=== PATIENT | male | born 1985 | race African-American/Black ===

== ENCOUNTER → 2016-12-11 | Outpatient (CLI) | payer SELFPAY ==
[~2016-12-11] MED LIST: /ALLEGDTA OR; ADVIL PO; ARTISOL10 OS; BACT800T OR; KEFL250C OR; PERC5TAB8 OR; ROCE1INJ IV; VIGAMOX OS
== END ==
LOC: M OUTALCOH 13:35
PROVIDERS: ATTEND Psychiatry & Neurology Psychiatry
DX: Z13.9 Encounter for screening, unspecified (principal); Z03.89 Encounter for observation for other suspected diseases and conditions ruled out

== ENCOUNTER → 2016-12-21 | Outpatient (CLI) | payer OTHER ==
--- NOTE | 2016-12-21 10:59 | REP ---
Chest x-ray: Three views. History: Positive PPD. . Comparison study: No comparison chest x-ray . Findings: The lungs are well inflated and free of infiltrate. The pleural angles are sharp. The heart size is normal. Pulmonary vasculature is not increased. No significant bony abnormality is seen. Impression: Negative chest x-ray. Signed by Jas Sanders MD 12/21/2016 10:50 A
== END ==
LOC: M WUC 10:36
PROVIDERS: ATTEND Surgery
DX: Z11.1 Encounter for screening for respiratory tuberculosis (principal)

== ENCOUNTER → 2017-03-29 | Outpatient (CLI) | payer OTHER ==
--- NOTE | 2017-03-29 10:21 | REP ---
RIGHT KNEE, FIVE VIEWS: HISTORY: Pain. There is no acute fracture or dislocation. The joint spaces are normal in appearance. A bone island is present in the proximal tibia. IMPRESSION: There is no acute fracture or dislocation. Signed by Dago Jon MD 03/29/2017 10:28 A
== END ==
LOC: M WUC 09:32
PROVIDERS: ATTEND Surgery
DX: M25.561 Pain in right knee (principal)

== ENCOUNTER 2019-11-15 07:52 | Outpatient (RCR) | payer MEDICAID | END 2019-11-17 | LOC: M OUTALCOH 07:52 | PROVIDERS: ATTEND Psychiatry & Neurology Addiction Medicine | DX: Z03.89 Encounter for observation for other suspected diseases and conditions ruled out (principal) ==

== ENCOUNTER 2019-11-23 11:17 | Outpatient (RCR) | payer MEDICAID | END 2019-12-16 | LOC: M OUTALCOH 11:17 | PROVIDERS: ATTEND Psychiatry & Neurology Addiction Medicine | DX: Z03.89 Encounter for observation for other suspected diseases and conditions ruled out (principal) ==

== ENCOUNTER → 2020-03-20 | Outpatient (CLI) | payer OTHER ==
--- NOTE | 2020-03-20 15:05 | REP ---
REASON FOR EXAM: Right upper quadrant pain. PRIORS: None. Ultrasonographic evaluation of the liver shows no abnormalities. There is no intrahepatic or extrahepatic ductal dilatation. The common bile duct measures 3 mm in its greatest transverse dimension. The gallbladder, pancreas, and right kidney are normal. IMPRESSION: Normal exam.
== END ==
LOC: M PLAIMG 09:14
PROVIDERS: ATTEND Physician Assistant
DX: R10.11 Right upper quadrant pain (principal)

== ENCOUNTER → 2020-04-05 | Outpatient (CLI) | payer OTHER ==
[~2020-04-05] MED LIST changes: +ANEC4CRE3 TOP; +IBUP200C25 PO; +NAPR-837 PO; +PROAAER10 INH; +ROBA750T4 PO; +TESS100C PO
--- NOTE | 2020-04-06 10:20 | REP ---
MAXILLOFACIAL CT STUDY WITHOUT CONTRAST: HISTORY: Chronic pansinusitis. Comparison CT study, October 23, 2011. CT FINDINGS: There is moderate mucosal thickening circumferentially in the maxillary sinuses bilaterally. This it is similar to the prior study. Moderate mucosal changes are seen in the ethmoid air cells bilaterally. There are mild mucosal changes in the sphenoid and frontal sinuses. Mastoid aeration is normal and symmetric. Bony nasal septum is essentially in the midline. Nasal turbinate soft tissues are unremarkable. No nasal polyp is appreciated. The ostiomeatal complexes are obscured by mucosal thickening bilaterally. No bony erosive changes seen. IMPRESSION: Polysinusitis changes, similar to the prior study. Electronically Signed by Jas Sanders MD 04/06/2020 10:36 A
== END ==
LOC: M RAD 12:39
PROVIDERS: ATTEND Specialist
DX: J32.4 Chronic pansinusitis (principal); J01.01 Acute recurrent maxillary sinusitis

== ENCOUNTER → 2020-05-20 | Outpatient (CLI) | payer OTHER ==
[~2020-05-20] MED LIST changes: -ANEC4CRE3 TOP; -NAPR-837 PO; -PROAAER10 INH; -ROBA750T4 PO; -TESS100C PO
--- NOTE | 2020-07-08 10:31 | REP ---
HEPATOCELLULAR NUCLEAR SCINTIGRAPHY WITH GALLBLADDER EJECTION FRACTION: HISTORY: Gastroesophageal reflux disease, right upper quadrant pain, esophagitis. TECHNIQUE: 6.6 mCi of Technetium-99m MDP is injected and standard sequential right upper quadrant imaging is acquired. At the 60 minute shikha, 8 ounces of Ensure was ingested orally and continued sequential imaging was acquired for another 60 minutes. Regions of interest are plotted around the gallbladder. SCINTOGRAPHIC FINDINGS: The initial hepatocellular parenchymal uptake phase is normal and homogeneous. The gallbladder is first labeled at 10 minutes along with intrahepatic bile ducts. The extrahepatic bile ducts are labeled at 15 minutes and the duodenum and jejunum are labeled at 30 and 35 minutes respectively. The ejection fraction is 72%. Values greater than 35% are normal. IMPRESSION: Normal hepatobiliary scan and gallbladder ejection fraction. MTDD
== END ==
LOC: M RAD 09:00
PROVIDERS: ATTEND Physician Assistant
DX: R10.11 Right upper quadrant pain (principal); K21.0 Gastro-esophageal reflux disease with esophagitis

== ENCOUNTER 2020-06-05 11:00 | Emergency (ER) | payer OTHER ==
[~2020-06-05] VITALS: Ht 182.9 cm; Wt 112.9 kg
[~2020-06-05 11:00] MED LIST changes: -IBUP200C25 PO
[2020-06-05 11:04] VITALS: BP 134/90
[2020-06-05] MEDS ORDERED: IBUP200C25 PO (11:10)
--- NOTE | 2020-06-27 11:05 | ECGEPIP ---
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
== END 2020-06-05 11:51 | disposition left against medical advice (07) ==
LOC: M ED 11:00
DX: M79.605 Pain in left leg (principal); R00.1 Bradycardia, unspecified; R19.7 Diarrhea, unspecified; J45.909 Unspecified asthma, uncomplicated; F17.210 Nicotine dependence, cigarettes, uncomplicated; Z53.9 Procedure and treatment not carried out, unspecified reason

== ENCOUNTER 2020-09-11 07:26 | Emergency (ER) | payer OTHER ==
[~2020-09-11] VITALS: Ht 182.9 cm; Wt 108.0 kg
[~2020-09-11 07:26] MED LIST changes: +IBUP200C25 PO
[2020-09-11] MEDS ORDERED: ACETAMINOPHEN 500 MG TAB PO ONE (08:00)
[2020-09-11 08:45] VITALS: O2SAT 100
[2020-09-11 09:02] LABS: BASO % 0.3 % (0.0-1.0); EOS # 0.3 10^3/uL (0.0-0.5); EOS % 3.9 % (0.0-3.0); HEMATOCRIT 43.5 % (42.0-52.0); HEMOGLOBIN 14.2 g/dl (13.5-17.5); LYMPH # 1.4 10^3/uL (1.5-5.0); LYMPH % 21.1 % (24.0-44.0); MEAN CORPUSCULAR HEMOGLOBIN 29.3 pg (27.0-33.0); MEAN CORPUSCULAR HGB CONC 32.6 g/dl (32.0-36.5); MEAN CORPUSCULAR VOLUME 89.7 fl (80.0-96.0); MONO # 1.2 10^3/uL (0.0-0.8); MONO % 17.3 % (0.0-5.0); NEUTROPHILS # 3.8 10^3/uL (1.5-8.5); NEUTROPHILS % 57.1 % (36.0-66.0); PLATELET COUNT, AUTOMATED 198 10^3/uL (150-450); RED BLOOD COUNT 4.85 10^6/uL (4.30-6.10); WHITE BLOOD COUNT 6.7 10^3/uL (4.0-10.0)
--- NOTE | 2020-09-11 09:11 | REP ---
INDICATION: chest tightness COMPARISON: 12/21/2016 TECHNIQUE: Portable AP view of the chest FINDINGS: The mediastinum and cardiac silhouette are stable and within normal limits for portable technique. The lung quijano are clear without acute consolidation, effusion, or pneumothorax. Skeletal structures are intact. IMPRESSION: No acute cardiopulmonary process appreciated. <Electronically signed by Bert Rushing > 09/11/20 [id number]
[2020-09-11 09:27] LABS: INFLUENZA A AMPLIFICATION NEGATIVE (NEGATIVE); INFLUENZA B AMPLIFICATION NEGATIVE (NEGATIVE)
[2020-09-11 09:31] LABS: ALBUMIN 3.3 GM/DL (3.2-5.2); ALT/SGPT 24 U/L (12-78); BILIRUBIN,DIRECT < 0.1 MG/DL (0.0-0.2); BILIRUBIN,TOTAL 0.3 MG/DL (0.2-1.0); BLOOD UREA NITROGEN 11 MG/DL (7-18); CALCIUM LEVEL 8.9 MG/DL (8.5-10.1); CARBON DIOXIDE LEVEL 25 MEQ/L (21-32); CHLORIDE LEVEL 109 MEQ/L (98-107); CK-MB VALUE MASS < 1.0 NG/ML (<3.6); CPK CREATINE PHOSPHOKINASE 192 U/L (39-308); CREATININE FOR GFR 0.95 MG/DL (0.70-1.30); GLOMERULAR FILTRATION RATE > 60.0 (>60); GLUCOSE, FASTING 79 MG/DL (70-100); LIPASE 73 U/L (73-393); MB/CK RELATIVE INDEX 0.52 (< OR =4); POTASSIUM SERUM 3.9 MEQ/L (3.5-5.1); SODIUM LEVEL 142 MEQ/L (136-145); TOTAL PROTEIN 7.5 GM/DL (6.4-8.2); TROPONIN I < 0.02 NG/ML (< 0.10)
[2020-09-11] MEDS ORDERED: diphenhydrAMINE 50MG/ML VIAL (J1200) IV ONE (09:45)
[2020-09-11] MEDS ORDERED: METOCLOPRAMIDE INJ 10MG/2ML VIAL (J2765 PER 1) IV ONE (09:45)
[2020-09-11] MEDS ORDERED: KETOROLAC 30 MG/ML 1ML VIAL IM ONE (09:45)
[2020-09-11] MEDS ORDERED: NS 500 ML IV ONE (09:45)
[2020-09-11] MEDS ORDERED: KETOROLAC 30 MG/ML 1ML VIAL IV ONE (10:15)
[2020-09-11] MEDS ORDERED: PROAAER10 INH (11:15)
[2020-09-11 11:58] VITALS: BP 146/83
[2020-09-11] MEDS ORDERED: TESS100C PO (11:59)
--- NOTE | 2020-09-12 07:24 | ECGEPIP ---
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
== END 2020-09-11 12:00 | disposition home or self-care (01) ==
LOC: M ED 07:26
DX: J06.9 Acute upper respiratory infection, unspecified (principal); B34.9 Viral infection, unspecified; J98.01 Acute bronchospasm; J02.9 Acute pharyngitis, unspecified; Z20.828 Contact with and (suspected) exposure to other viral communicable diseases; F17.200 Nicotine dependence, unspecified, uncomplicated; Z79.899 Other long term (current) drug therapy
CPT/HCPCS: 71045; 80048; 80076; 82550; 82553; 83690; 85025; 87631; 87880; 93005; 96361; 96372; 96374; 96375; 99284; J1200; J1885; J2765; U0003

== ENCOUNTER 2020-10-29 14:32 | Emergency (ER) | payer OTHER ==
[~2020-10-29] VITALS: Ht 182.9 cm; Wt 108.5 kg
[~2020-10-29 14:32] MED LIST changes: +PROAAER10 INH; +TESS100C PO
--- OUTSIDE RECORDS SUMMARY | 2020-10-29 14:39 | CCD | Continuity of Care Document ---
Author Author Mine STEARNS A Organization Unknown Address [address] [place] [address] [place] [address] Phone [phone] Care Team Providers Care Nurse Staff Industrial Name Role Phone Abdirashid CAMACHOM [phone] Problems Description No Information Available Social History Type Date Description Comments Sex Unknown Tobacco Use Start: Unknown Current Cigar Smoker 4 Daily ETOH Use Occasionally consumes alcohol Tobacco Use Start: Unknown Patient has never smoked Tobacco Use Start: Unknown The patient has never vaped Smoking Status Reviewed: 09/29/20 The patient has never vaped Allergies, Adverse Reactions, Alerts Description No Known Drug Allergies Medications Active Medications SIG Qnty Indications Ordering Provide r Date Albuterol Fha 90mcg/Act Aerosol 2 puffs q4hrs./prn sob or wheezing Unknown 00/00 /0000 History Medications No Active Medications Unknown - 09/29/2020 Immunizations Description No Information Available Vital Signs Date Vital Result Comment 09/29/2020 2:18pm BP Systolic 129 mmHg BP Diastolic 90 mmHg Heart Rate 67 /min Respiratory Rate 20 /min O2 % BldC Oximetry 99 % Body Temperature 98.7 F Weight 234.00 lb Pain Level 5 Results Description No Information Available Procedures Description No Information Available Medical Devices Description No Information Available Encounters Type Date Location Provider Dx Diagnosis Office Visit 09/29/2020 11:25a Main Office SHRUTI Tierney J45.9 01 Unspecified asthma with (acute) exacerbation Z20.828 Contact w and exposure to ot h viral communicable diseases Assessments Date Code Description Provider 09/29/2020 J45.901 Unspecified asthma with (acute) exacerbation SHRUTI Tierney 09/29/2020 Z20.828 Contact with and (lockhart spected) exposure to other viral communicable diseases SHRUTI Tierney Plan of Treatment No Information Available Functional Status Description No Information Available Mental Status Description No Information Available Referrals Description No Information Available
--- OUTSIDE RECORDS SUMMARY | 2020-10-29 14:39 | CCD | Continuity of Care Document ---
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
--- OUTSIDE RECORDS SUMMARY | 2020-10-29 14:39 | CCD ---
Author Author [facility] Organization [facility] Address Unknown Phone Unavailable Care Team Providers Care Administration Specialist Name Role Phone EDWARDS, GIO ANTHONY RPA-C Unavailable Unavailable EDWARDS, GIO ANTHONY RPA-C Unavailable Unavailable EDWARDS, GIO ANTHONY RPA-C Unavailable Unavailable EDWARDS, GIO ANTHONY RPA-C Unavailable Unavailable EDWARDS, GIO ANTHONY RPA-C Unavailable Unavailable EDWARDS, GIO ANTHONY RPA-C Unavailable Unavailable EDWARDS, GIO ANTHONY RPA-C Unavailable Unavailable EDWARDS, GIO ANTHONY RPA-C Unavailable Unavailable EDWARDS, GIO ANTHONY RPA-C Unavailable Unavailable EDWARDS, GIO ANTHONY RPA-C Unavailable Unavailable EDWARDS, GIO ANTHONY RPA-C Unavailable Unavailable EDWARDS, GIO ANTHONY RPA-C Unavailable Unavailable EDWARDS, GIO ANTHONY RPA-C Unavailable Unavailable EDWARDS, GIO ANTHONY RPA-C Unavailable Unavailable EDWARDS, GIO ANTHONY RPA-C Unavailable Unavailable EDWARDS, GIO ANTHONY RPA-C Unavailable Unavailable EDWARDS, GIO ANTHONY RPA-C Unavailable Unavailable EDWARDS, GIO ANTHONY RPA-C Unavailable Unavailable EDWARDS, GIO ANTHONY RPA-C Unavailable Unavailable EDWARDS, GIO ANTHONY RPA-C Unavailable Unavailable EDWARDS, GIO ANTHONY RPA-C Unavailable Unavailable EDWARDS, GIO ANTHONY RPA-C Unavailable Unavailable EDWARDS, GIO ANTHONY RPA-C Unavailable Unavailable EDWARDS, GIO ANTHONY RPA-C Unavailable Unavailable EDWARDS, GIO ANTHONY RPA-C Unavailable Unavailable EDWARDS, GIO ANTHONY RPA-C Unavailable Unavailable EDWARDS, GIO ANTHONY RPA-C Unavailable Unavailable EDWARDS, GIO ANTHONY RPA-C Unavailable Unavailable EDWARDS, GIO ANTHONY RPA-C Unavailable Unavailable EDWARDS, GIO ANTHONY RPA-C Unavailable Unavailable EDWARDS, GIO ANTHONY RPA-C Unavailable Unavailable EDWARDS, GIO ANTHONY RPA-C Unavailable Unavailable EDWARDS, GIO ANTHONY RPA-C Unavailable Unavailable EDWARDS, GIO ANTHONY RPA-C Unavailable Unavailable EDWARDS, GIO ANTHONY RPA-C Unavailable Unavailable EDWARDS, GIO ANTHONY RPA-C Unavailable Unavailable EDWARDS, GIO ANTHONY RPA-C Unavailable Unavailable EDWARDS, GIO ANTHONY RPA-C Unavailable Unavailable MAJAK, R JOHN DPM Unavailable Unavailable MAJAK, R JOHN DPM Unavailable Unavailable MAJAK, R JOHN DPM Unavailable Unavailable MAJAK, R JOHN DPM Unavailable Unavailable MAJAK, R JOHN DPM Unavailable Unavailable MAJAK, R JOHN DPM Unavailable Unavailable MAJAK, R JOHN DPM Unavailable Unavailable MAJAK, R JOHN DPM Unavailable Unavailable MAJAK, R JOHN DPM Unavailable Unavailable MAJAK, R JOHN DPM Unavailable Unavailable MAJAK, R JOHN DPM Unavailable Unavailable MAJAK, R JOHN DPM Unavailable Unavailable MAJAK, R JOHN DPM Unavailable Unavailable MAJAK, R JOHN DPM Unavailable Unavailable MAJAK, R JOHN DPM Unavailable Unavailable MAJAK, R JOHN DPM Unavailable Unavailable MAJAK, R JOHN DPM Unavailable Unavailable MAJAK, R JOHN DPM Unavailable Unavailable MAJAK, R JOHN DPM Unavailable Unavailable MAJAK, R JOHN DPM Unavailable Unavailable MAJAK, R JOHN DPM Unavailable Unavailable MAJAK, R JOHN DPM Unavailable Unavailable MAJAK, R JOHN DPM Unavailable Unavailable MAJAK, R JOHN DPM Unavailable Unavailable MAJAK, R JOHN DPM Unavailable Unavailable MAJAK, R JOHN DPM Unavailable Unavailable MAJAK, R JOHN DPM Unavailable Unavailable MAJAK, R JOHN DPM Unavailable Unavailable MAJAK, R JOHN DPM Unavailable Unavailable MAJAK, R JOHN DPM Unavailable Unavailable Adiel Hilliard MD Unavailable Unavailable Arminda, Adiel Lopez MD Unavailable Unavailable Adiel Hilliard MD Unavailable Unavailable Adiel Hilliard MD Unavailable Unavailable Adiel Hilliard MD Unavailable Unavailable Adiel Hilliard MD Unavailable Unavailable Abriss, B John SINGH Unavailable Unavailable Abriss, B John SINGH Unavailable Unavailable Abriss, B John SINGH Unavailable Unavailable Abriss, B John SINGH Unavailable Unavailable Abriss, B John SINGH Unavailable Unavailable Abriss, B John SINGH Unavailable Unavailable Abriss, B John SINGH Unavailable Unavailable Abriss, B John SINGH Unavailable Unavailable Abriss, B John SINGH Unavailable Unavailable Abriss, B John SINGH Unavailable Unavailable Abriss, B John SINGH Unavailable Unavailable Abriss, B John SINGH Unavailable Unavailable Dorsey, Naheed Katia PA Unavailable Unavailable Dorsey, Naheed Katia PA Unavailable Unavailable Dorsey, Naheed Katia PA Unavailable Unavailable Dorsey, Naheed Katia PA Unavailable Unavailable Dorsey, Naheed Katia PA Unavailable Unavailable Dorsey, Naheed Katia PA Unavailable Unavailable Dorsey, Naheed Katia PA Unavailable Unavailable Dorsey, Naheed Katia PA Unavailable Unavailable Dorsey, Naheed Katia PA Unavailable Unavailable Dorsey, Naheed Katia PA Unavailable Unavailable [facility], RFROST EDWARDS PA ANTHONY Unavailable Unavailable Peña, John Bert PA Unavailable Unavailable Peña, John Bert PA Unavailable Unavailable Peña, John Bert PA Unavailable Unavailable Peña, John Bert PA Unavailable Unavailable Peña, John Bert PA Unavailable Unavailable Peña, John Bert PA Unavailable Unavailable Peña, John Bert PA Unavailable Unavailable Peña, John Bert PA Unavailable Unavailable Peña, John Bert PA Unavailable Unavailable Peña, John Bert PA Unavailable Unavailable Peña, John Bert PA Unavailable Unavailable Peña, John Bert PA Unavailable Unavailable Peña, John Bert PA Unavailable Unavailable Peña, John Bert PA Unavailable Unavailable Peña, John Bert PA Unavailable Unavailable Peña, John Bert PA Unavailable Unavailable Peña, John Bert PA Unavailable Unavailable Peña, John Bert PA Unavailable Unavailable Peña, John Bert PA Unavailable Unavailable Peña, John Bert PA Unavailable Unavailable Peña, John Bert PA Unavailable Unavailable Peña, John Bert PA Unavailable Unavailable Peña, John Bert PA Unavailable Unavailable Peña, John Bert PA Unavailable Unavailable Peña, John Bert PA Unavailable Unavailable Peña, John Bert PA Unavailable Unavailable Re-disclosure Warning The records that you are about to access may contain information from federally-assisted alcohol or drug abuse programs. If such information is present, then the following federally mandated warning applies: This information has been disclosed to you from records protected by federal confidentiality rules (42 CFR part 2). The federal rules prohibit you from making any further disclosure of this information unless further disclosure is expressly permitted by the written consent of the person to whom it pertains or as otherwise permitted by 42 CFR part 2. A general authorization for the release of medical or other information is NOT sufficient for this purpose. The Federal rules restrict any use of the information to criminally investigate or prosecute any alcohol or drug abuse patient.The records that you are about to access may contain highly sensitive health information, the redisclosure of which is protected by Article 27-F of the [facility] Public Health law. If you continue you may have access to information: Regarding HIV / AIDS; Provided by facilities licensed or operated by the [facility] Office of Mental Health; or Provided by the [facility] Office for People With Developmental Disabilities. If such information is present, then the following [facility] mandated warning applies: This information has been disclosed to you from confidential records which are protected by state law. State law prohibits you from making any further disclosure of this information without the specific written consent of the person to whom it pertains, or as otherwise permitted by law. Any unauthorized further disclosure in violation of state law may result in a fine or skilled nursing sentence or both. A general authorization for the release of medical or other information is NOT sufficient authorization for further disc losure. Allergies and Adverse Reactions Type Description Substance Reaction Status Data Source(s ) Miscellaneous allergy SEASONAL SEASONAL [facility] Encounters Encounter Providers Location Date Indications Data Source(s ) Outpatient Attender: Katia knowles 09/29/2020 10:25:00 AM EST [facility] ([facility]) Outpatient Attender: JESUS COWAN [facility] 05/18 12:46:[address] [facility] Outpatient Attender: JOHN ESTRADA Formerly named [facility] 04/17 01:15:00 PM EDT [facility] ([facility] Outpatient Attender: John Ewing/George/William/Amina indl 04/18/2020 01:00:00 PM EDT [facility] Outpatient Attender: RFROST EDWARDS PA ANTHONY [facility] 11/2019 11:16:[address] [facility] Outpatient Attender: RFROST EDWARDS PA ANTHONY [facility] 11/2019 11:11:[address] [facility] Outpatient Attender: RFROST EDWARDS PA ANTHONY [facility] 10/2019 10:06:[address] [facility] Outpatient Attender: ANTHONY EDWARDS RPA-C [facility] 04/12/2020 04:14:[address] [facility] Outpatient Attender: RFROST EDWARDS PA ANTHONY [facility] 03/19 02:46:[address] [facility] Outpatient Attender: RFROST EDWARDS PA ANTHONY [facility] 03/18 08:51:[address] [facility] Outpatient Referrer: Bert BAHENA 04/05/2020 05:39:00 A M EDT [facility] Outpatient Attender: RFROST EDWARDS PA ANTHONY [facility] 03/18 11:15:[address] [facility] Outpatient Attender: RFROST EDWARDS PA ANTHONY [facility] 06/2020 08:37:[address] [facility] Outpatient Attender: JOHN ESTRADA Formerly named [facility] 10/2019 01:00:00 PM EDT [facility] ([facility] Outpatient Attender: RFROST EDWARDS PA [facility] 02/16 03:28:[address] [facility] Outpatient Attender: ANTHONY TAYST RPA-C [facility] 03/08/2020 12:18:[address] [facility] Outpatient Attender: ANTHONY EDWARDS RPA-C [facility] 03/08/2020 12:01:[address] [facility] Outpatient Attender: RFROST EDWARDS PA ANTHONY [facility] 02/16 12:01:[address] [facility] Outpatient Attender: RFROST EDWARDS PA ANTHONY [facility] 02/16 12:00:[address] [facility] Outpatient Attender: ANTHONYMARION EDWARDS RPA-C [facility] 03/08/2020 12:00:[address] [facility] Outpatient Attender: JESUS COWAN [facility] 02/15 09:07:[address] [facility] Outpatient Attender: ANTHONY GRACE CARROLLC [facility] 02/10/2020 12:00:[address] [facility] Outpatient Attender: ANTHONY GRACE RPA-C [facility] 02/09/2020 03:10:[address] [facility] Outpatient Attender: ANTHONY TAYST RPA-C [facility] 02/09/2020 03:06:[address] [facility] Medications Medication Brand Name Start Date Product Form Dose Route Admi nistrative Instructions Pharmacy Instructions Status Indications Reaction Description Data Source(s) No Active Medications 09/29/2020 12:00:00 AM EST completed [facility] ([facility]) benzonatate 100 MG Oral Capsule BENZONATATE 09/11/2020 12:00:00 AM EST capsule 21 TAKE ONE CAPSULE BY MOUTH THREE TIMES A DAY FOR COUGH TAKE ONE CAPSULE BY MOUTH THREE TIMES A DAY FOR COUGH SOLD: 09/11/2020 [facility] 90 mcg/actuation 09/11/2020 12:00:00 AM EST HFA aerosol inha ler 8 INHALE TWO PUFFS BY MOUTH EVERY 4 TO 6 HOURS NEEDED FOR WHEEZING INHALE TWO PUFFS BY MOUTH EVERY 4 TO 6 HOURS NEEDED FOR WHEEZING SOLD: 09/11/2020 [facility] Fluconazole 100 MG Oral Tablet [Diflucan] Diflucan 04/29/2020 1 2:00:00 AM EDT ORAL active [facility] ([facility] 100 mg 04/29/2020 12:00:00 AM EDT tablet 30 TAKE ONE TABLET BY MOUTH EVERY DAY FOR 5 DAYS OR UNTIL INFECTION RESOLVES TAKE ONE TABLET BY MOUTH EVERY DAY FOR 5 DAYS OR UNTIL INFECTION RESOLVES SOLD: 04/30/2020 [facility] 150 mg 04/22/2020 12:00:00 AM EDT tablet 3 TAKE ONE TABLET BY MOUTH EVERY OTHER DAY FOR 3 DOSES TAKE ONE TABLET BY MOUTH EVERY OTHER DAY FOR 3 DOSES S OLD: 04/22/2020 [facility] Xhance Xhance 04/18/2020 12:00:00 AM EDT RESPIRATORY ac tive [facility] ([facility], ) 150 mg 04/12/2020 12:00:00 AM EDT tablet 3 TAKE ONE TABLET BY MOUTH DAILY FOR 3 DAYS TAKE ONE TABLET BY MOUTH DAILY FOR 3 DAYS SOLD: 04/12/2020 [facility] montelukast 10 MG Oral Tablet MONTELUKAST SODIUM 04/12/2020 12:0 0:00 AM EDT tablet 30 TAKE ONE TABLET BY MOUTH A BEDTI ME DAILY TAKE ONE TABLET BY MOUTH A BEDTIME DAILY SOLD: 05/15/2020 [facility] montelukast 10 MG Oral Tablet MONTELUKAST SODIUM 04/12/2020 12:0 0:00 AM EDT tablet 30 TAKE ONE TABLET BY MOUTH A BEDTI ME DAILY TAKE ONE TABLET BY MOUTH A BEDTIME DAILY SOLD: 04/12/2020 [facility] 500 mg 04/01/2020 12:00:00 AM EDT tablet 4 TAKE FOUR TABLETS BY MOUTH AT ONCE TAKE FOUR TABLETS BY MOUTH AT ONCE SOLD: 04/01/2020 [facility] 150 mg 04/01/2020 12:00:00 AM EDT tablet 2 TAKE ONE TABLET BY MOUTH DAILY FOR 2 DAYS. ONE AT START OF SYMPTOMS AND ONE 72 HOURS LATER NEEDED TAKE ONE TABLET BY MOUTH DAILY FOR 2 DAYS. ONE AT START OF SYMPTOMS AND ONE 72 HOURS LATER NEEDED SOLD: 04/01/2020 [facility] ciclopirox 0.0077 MG/MG Topical Gel Ciclopirox 03/18/2020 12:00:00 AM EDT active [facility] ([facility] Lidocaine 0.05 MG/MG Topical Ointment Lidocaine 03/18/2020 12:00:00 AM EDT active [facility] ([facility] Ketoconazole 20 MG/ML Topical Cream Ketoconazole 03/18/2020 12:00:00 AM EDT active [facility] terbinafine 250 MG Oral Tablet Terbinafine HCL 03/18/2020 12:00:00 AM EDT ORAL active [facility] ([facility] 2 % 03/18/2020 12:00:00 AM EDT cream 60 APPLY TO BOTTOMS OF FEET DAILY APPLY TO BOTTOMS OF FEET DAILY SOLD: 03/18/2020 [facility] 0.77 % 03/18/2020 12:00:00 AM EDT gel 30 APPLY BETWEEN TOES TO AFFECTED AREAS ONLY ONCE DAILY APPLY BETWEEN TOES TO AFFECTED AREAS ONLY ONCE DAILY S OLD: 03/18/2020 [facility] 250 mg 03/18/2020 12:00:00 AM EDT tablet 30 TAKE ONE TABLET BY MOUTH EVERY DAY TAKE ONE TABLET BY MOUTH EVERY DAY SOLD: 03/18/2020 [facility] 5 % 03/18/2020 12:00:00 AM EDT ointment 35 APPLY TO PAINFUL AREA ON TOE UP TO THREE TIMES A DAY APPLY TO PAINFUL AREA ON TOE UP TO THREE TIMES A DAY S OLD: 03/18/2020 [facility] No Active Medications 03/14/2020 12:00:00 AM EDT completed [facility] ([facility], ) Amoxicillin 875 MG / Clavulanate 125 MG Oral Tablet [Augment in] Augmentin 03/14/2020 12:00:00 AM EDT ORAL active [facility] ([facility], ) Prednisone 10 MG Oral Tablet Prednisone 03/14/2020 12:00:00 AM EDT ORAL active [facility] ([facility], ) 10 mg 03/14/2020 12:00:00 AM EDT tablet 50 TAKE TWO TABLETS BY MOUTH TWICE A DAY FOR 5 DAYS THEN 1 THREE TIMES A DAY FOR 5 DAYS THEN 1 TWO TIMES A DAY FOR 5 DAYS THEN 1 ONCE DAILY FOR 5 DAYS TAKE TWO TABLETS BY MOUTH TWICE A DAY FO R 5 DAYS THEN 1 THREE TIMES A DAY FOR 5 DAYS THEN 1 TWO TIMES A DAY FOR 5 DAYS THEN 1 ONCE DAILY FOR 5 DAYS SOLD: 03/14/2020 [facility] 875-125 mg 03/14/2020 12:00:00 AM EDT tablet 30 TAKE ONE TABLET BY MOUTH TWICE A DAY TAKE ONE TABLET BY MOUTH TWICE A DAY SOLD: 03/14/2020 [facility] 10 mg 03/08/2020 12:00:00 AM EDT tablet 30 TAKE ONE TABLET BY MOUTH EVERY DAY TAKE ONE TABLET BY MOUTH EVERY DAY SOLD: 04/01/2020 [facility] 50 mcg (2,000 unit) 03/08/2020 12:00:00 AM EDT capsule 30 TAKE ONE CAPSULE BY MOUTH EVERY DAY TAKE ONE CAPSULE BY MOUTH EVERY DAY SOLD: 04/29/2020 [facility] 50 mcg (2,000 unit) 03/08/2020 12:00:00 AM EDT capsule 30 TAKE ONE CAPSULE BY MOUTH EVERY DAY TAKE ONE CAPSULE BY MOUTH EVERY DAY SOLD: 04/01/2020 [facility] 10 mg 03/08/2020 12:00:00 AM EDT tablet 30 TAKE ONE TABLET BY MOUTH EVERY DAY TAKE ONE TABLET BY MOUTH EVERY DAY SOLD: 04/29/2020 [facility] 50 mcg (2,000 unit) 03/08/2020 12:00:00 AM EDT capsule 30 TAKE ONE CAPSULE BY MOUTH EVERY DAY TAKE ONE CAPSULE BY MOUTH EVERY DAY SOLD: 03/09/2020 [facility] 10 mg 03/08/2020 12:00:00 AM EDT tablet 30 TAKE ONE TABLET BY MOUTH EVERY DAY TAKE ONE TABLET BY MOUTH EVERY DAY SOLD: 03/09/2020 [facility] 600 mg 03/01/2020 12:00:00 AM EDT tablet 21 TAKE ONE TABLET BY MOUTH THREE TIMES A DAY WITH FOOD TAKE ONE TABLET BY MOUTH THREE TIMES A DAY WITH FOOD S OLD: 03/01/2020 [facility] 500 mg 03/01/2020 12:00:00 AM EDT tablet 21 TAKE ONE TABLET BY MOUTH THREE TIMES A DAY TAKE ONE TABLET BY MOUTH THREE TIMES A DAY SOLD: 03/01/2020 [facility] 875-125 mg 02/09/2020 12:00:00 AM EDT tablet 20 TAKE ONE TABLET BY MOUTH TWICE A DAY FOR 10 DAYS TAKE ONE TABLET BY MOUTH TWICE A DAY FOR 10 DAYS SOLD: 02/10/2020 [facility] 40 mg 02/09/2020 12:00:00 AM EDT capsule,delayed release (DR/EC) 30 TAKE ONE CAPSULE BY MOUTH EVERY DAY TAKE ONE CAPSULE BY MOUTH EVERY DAY SOLD: 03/22/2020 [facility] 40 mg 02/09/2020 12:00:00 AM EDT capsule,delayed release (DR/EC) 30 TAKE ONE CAPSULE BY MOUTH EVERY DAY TAKE ONE CAPSULE BY MOUTH EVERY DAY SOLD: 02/10/2020 [facility] 600 mg 01/04/2020 12:00:00 AM EDT tablet 21 TAKE ONE TABLET BY MOUTH THREE TIMES A DAY WITH FOOD TAKE ONE TABLET BY MOUTH THREE TIMES A DAY WITH FOOD S OLD: 01/06/2020 [facility] 500 mg 01/04/2020 12:00:00 AM EDT capsule 21 TAKE ONE CAPSULE BY MOUTH THREE TIMES A DAY TAKE ONE CAPSULE BY MOUTH THREE TIMES A DAY SOLD: 01/06/2020 [facility] 500 mg 12/26/2019 12:00:00 AM EDT capsule 21 TAKE ONE CAPSULE BY MOUTH THREE TIMES A DAY TAKE ONE CAPSULE BY MOUTH THREE TIMES A DAY SOLD: 12/26/2019 [facility] 600 mg 12/04/2019 12:00:00 AM EST tablet 21 TAKE ONE TABLET BY MOUTH THREE TIMES A DAY WITH FOOD TAKE ONE TABLET BY MOUTH THREE TIMES A DAY WITH FOOD S OLD: 12/04/2019 [facility] 500 mg 12/04/2019 12:00:00 AM EST tablet 21 TAKE ONE TABLET BY MOUTH THREE TIMES A DAY FOR 7 DAYS TAKE ONE TABLET BY MOUTH THREE TIMES A DAY FOR 7 DAYS SOLD: 12/04/2019 [facility] Insurance Providers Payer name Policy type / Coverage type Policy ID Covered green party ID Covered green party's relationship to gallagher Policy Gallagher Plan Information [facility] COMMUNITY PLAN [facility] [id number] SP [id number] [facility]) O [id number] S [id number] [facility] COMMUNITY PLAN [facility] [facility] [id number] SP [id number] [facility]) O [id number] S [id number] [facility] COMMUNITY PLAN [facility] [id number] SP [id number] MEDICAID [id number] SP [id number] [facility]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 [id number] SP [id number] SELF PAY ONLY [id number] SP [id number] [facility] [employer]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 [id number] S [id number] P UNAVAILABLE UNAVAILA BLE [id number] Problems, Conditions, and Diagnoses Code Display Name Description Problem Type Effective Dates Data Source(s) 112.3 Candidiasis of skin Candidiasis of skin 020 04:13:[address] [facility] 881893592 Hammer toe Hammer toe Problem 03/19/2020 12:00:00 AM ED T [facility] ([facility] Corns and callosities Corns and callosities Problem 03/19/2020 12:00:00 AM EDT [facility] ([facility] [id number] Onychomycosis Onychomycosis Problem 03/19/2020 12:00:00 AM EDT [facility] ([facility] 2270015 Tinea pedis Tinea pedis Problem 03/19/2020 12:00:00 AM EDT [facility] ([facility] 790.21 Impaired fasting glucose Impaired fasting glucose 03/08/2020 12:16:[address] [facility] E55.9 Vitamin D deficiency, unspecified Vitamin D deficiency , unspecified 03/08/2020 12:16:[address] [facility] 789.01 Right upper quadrant pain Right upper quadrant pain 03/08/2020 12:16:[address] [facility] 477.9 Seasonal allergic rhinitis Seasonal allergic rhinitis 03/08/2020 12:16:[address] [facility] Z00.00 Encounter for general adult medical examination without abnormal findings Encounter for general adult medical examination without abno rmal findings 03/08/2020 12:16:[address] [facility] V85.34 BMI 34.0-34.9 BMI 34.0-34.9 02/09/2020 03:08:[address] [facility] 278.00 Obesity Obesity 02/09/2020 03:08:[address] [facility] L84 Corns and callosities Crosby of toe 02/09/2020 03 :05:[address] [facility] right 5th 110.1 Onychomycosis Onychomycosis 02/09/2020 03:05:[address] [facility] 300.02 Generalized anxiety disorder Generalized anxiety disor adalid 02/09/2020 03:05:[address] [facility] J32.1 Chronic frontal sinusitis Chronic frontal sinusitis 02/09/2020 03:05:[address] [facility] 530.11 Gastro-esophageal reflux disease with es ophagitis Gastro-esophageal reflux disease with esophagitis 02/09/2020 03:05:37 PM EDT [facility] 309.81 PTSD PTSD 02/09/2020 03:05:[address] [facility] Results ID Date Data Source [id number] 09/29/2020 12:00:00 AM EST [facility] Name Value Range Interpretation Code Description Data Kayleigh rce(s) Supporting Document(s) SARS coronavirus 2 Ag [facility] This lab was ordered by [facility] and reported by [facility]. ID Date Data Source [id number] 09/11/2020 08:28:00 AM EST [facility] Name Value Range Interpretation Code Description Data Kayleigh rce(s) Supporting Document(s) SARS coronavirus 2 RNA [facility] This lab was ordered by [facility] and reported by [facility]. ID Date Data Source [id number] 09/02/2020 12:00:00 AM EST [facility] Name Value Range Interpretation Code Description Data Kayleigh rce(s) Supporting Document(s) SARS coronavirus 2 RNA [Presence] in Res piratory specimen by DHIRAJ with probe detection [facility] This lab was ordered by [facility] and reported by [facility]. ID Date Data Source [id number] 04/22/2020 03:42:[address] [facility] Measurements & CalculationsHeight: 72 inches 182.88 cm Weight: 255.2 pounds 116 kg Body Mass Index (BMI): 34.74BMI Interpretation: ObeseBody Surface Area (BSA): 2.37Weight Management Education Done (Nutrition/Physical Activity)Vital SignsTemperature: 96.6F 35.89C tympanic Pulse Rate: 66 beats/minuteRespiratory Rate: 16 respirations/minuteBlood Pressure: 114/77 left arm sitting automaticO2 Saturation: 98% room airVital Signs performed by: Corrina Napoles , April 22, 2020 3:48 PMVital Signs performed by: Arjun BINGHAM, April 22, 2020 4:09 PMInitial Intake Information From: patientRoom #: 1Infectious Disease / Travel ScreeningRecent travel for you or any close contacts? NoHave you had any close contact with anyone diagnosed with or under investigation for COVID-19 (coronavirus)? NoTravel in last 14 days? NoFever? NoRespiratory symptoms: cough, cold, congestion, shortness of breath, difficulty breathing? NoLoss of smell? NoLoss of taste? NoJoint pain? NoMuscle aches? NoGeneral fatigue, feeling tired, or weak? NoWeakness or numbness of your arms or legs, including being unable to walk/move? NoRash or hives? NoHave you engaged in any high-risk sexual activity? NoSmoking, Tobacco, Vaping or Smoke Exposure StatusSmoke Status: current every day smokerTobacco Use: YesAdv to Quit: YesDo you vape? NoPassive Smoke Exposure: YesMenstrual HistoryAny possibility of ? NoHealthcare HistorySince your last office visit...Have you been admitted to the hospital? NoHave you been to an emergency room (ER) or urgent care clinic? NoHave you seen another healthcare provider? NoHave you seen a dentist? Yes - [facility] DENTALIntake performed by: Corrina Napoles , April 22, 2020 3:46 PMRate Your HealthIn general, would you say your health is? FairPain AssessmentAre you currently having any pain which... You would like your provider to address? No Affects your activity level? NoDepression Screening - PHQ-2Over the last two weeks, have you... Had little interest or pleasure in doing things? Not at all Been feeling down, depressed, or hopeless? Not at all PHQ-2 Score: 0Anxiety Screening - GRACE-2Over the last two weeks, have you been... Feeling nervous, anxious, or on edge? Not at all Unable to stop or control worrying? Not at all GRACE-2 Score: 0Food InsecurityWithin the past year...Did you worry whether your food would run out before you got money to buy more? NoWas there a time when the food you bought didn't last and you didn't have money to get more? NoScreening, Brief Intervention, & Referral to Treatment (SBIRT)Patient declined SBIRT screening.Performed by: Corrina Napoles , April 22, 2020 3:48 PMPatient History Medical History:AsthmaAsthma/PTSDsocial disorderleft orbital hx with recurrent sinusitisSurgical History:right inguinal hernia x2 - childhood, ~2009orbital surgery-[facility] ENTFamily History:[place] - Female under age 65 (Mother)Sudden cardiac (Mother)Social/Personal History: Advised to Quit/Tobacco Education: YesAbuse HistoryHistory of physical abuse? NoHistory of sexual abuse? NoHistory of emotional abuse? NoNurses Note WOULD LIKE ULTRASOUND RESULTS-THEY ARE IN CHARTChief ComplaintINFECTION IS GETTING ALITTLE BETTER/NOT COMPLETELY GONE AWAYHistory of Present Illness (HPI)Pt here today for fu on yeast infection of the penis. Pt reports symptoms have nearly resolved but at night he continues to have some mild itching and drainage. Pt otherwise reports he is well and without problem. Pt looks well. Pt denies sob, wheezing, cough, and fever. Transitions of Care InboundProblem ReviewProblem List was reviewed and/or updated during this visit.Medication Reconciliation & ReviewMedication List was reviewed and/or updated during this visit, including review of any vxbd-spx-upyruzk medications, herbal therapies, and/or supplements.Allergy ReviewAllergy List was reviewed and/or updated during this visit.Adult Preventive CareProvider Calculated and Reviewed all Clinical Protocols for patient today. Screening Tobacco Screening: Smoking Status: current every day smoker (04/22/2020) Tobacco Use: Currently (04/22/2020) Advised to Quit: Yes (04/22/2020)Labs/Meds/Other Counseling-Nutrition and Physical Activity:BMI Interpretation: Obese (04/22/2020) Counseling: Done (04/22/2020) Physical Activity: Done (04/22/2020)Review of Systems General: Denies loss of appetite, chills, dizziness, fatigue, fever, continued fever, headache, feeling ill, sweats, night sweats, sleep disturbances, weight loss. Eyes: Denies blurring of vision, double vision, irritation, discharge, vision loss, eye pain, eye swelling, droopy eyelid, sensitivity to light, redness, itching. Ears/Nose/Throat: Denies earache, ear discharge, ringing in ears, decreased hearing, nasal congestion, nosebleeds, runny nose, sore throat, hoarseness, difficulty swallowing, dry mouth, tooth pain, bleeding gums, swollen glands. Cardiovascular: Denies chest pain, palpitations, feeling faint, trouble breathing w/exertion, SOB upon lying down, SOB at night, peripheral edema, elevated blood pressure, decreased heart rate. Respiratory: Denies cough, difficulty breathing, shortness of breath, excessive sputum, coughing up blood, wheezing, chest pain. Breast: Denies discoloration, tenderness, breast changes, breast lump, nipple discharge. Gastrointestinal: Denies nausea, vomiting, bleeding, burning, itching, irritation, cramps, diarrhea, bloody diarrhea, watery diarrhea, constipation, pain or discomfort, feeling any lumps or bumps, pain with BM, pain during receptive anal sex, change in bowel habits, fecal incontinence, abdominal pain, blood in stool, black or tarry stools, jaundice, heartburn, urge to defecate. Genitourinary: Complains of see HPI, penile discharge. Denies urinary incontinence, pain with urination, burning with urination, urinary frequency, urinary hesitancy, urinary urgency, urinary urgency at night, incomplete emptying, blood in urine, painful intercourse, dec reased libido, impotence, penile sores, genital foul odor, genital sores, genital burning, genital itching, genital warts, anal discharge, anal sores, anal warts. Musculoskeletal: Denies back pain, joint pain, leg pain, other pain-see comments, joint swelling, body aches, muscle aches, muscle cramps, muscle weakness, stiffness, recent injury. Skin: Denies rash, hives, redness, itching, dryness, nail changes, suspicious lesions, athlete's foot, rash on palms, rash on bottom of feet. Neurologic: Denies muscle impairment, weakness, numbness/tingling, seizures, slurred speech, feeling faint, tremors, vertigo, paralysis on one side, paralysis on both sides. Psychiatric: Denies depression, anxiety, memory loss, mental disturbance, suicidal ideation, homicidal ideation, hallucinations, paranoia, feeling stressed, hearing voices. Endocrine: Denies cold intolerance, heat intolerance, excessive thirst, excessive hunger, excessive urination, weight loss, weight gain. Heme/Lymphatic: Denies abnormal bruising, bleeding, enlarged lymph nodes. Allergic/Immunologic: Denies hives, swelling, hay fever, persistent infections, HIV/STI exposure. Physical ExamGeneral Appearance: well nourished, well hydrate d, no acute distressEyes, External: conjunctivae and lids normal, EOMIRespiratory, Auscultation: clear to auscultation bilaterally; no rales, rhonchi, or wheezesRespiratory, Effort: no intercostal retractions or use of accessory musclesCardiovascular, Auscultation: S1, S2 audible; no murmur, rub, or gallop; RRRPeripheral Circulation: no clubbing, cyanosis, edema, or varicositiesAbdomen: soft, non-tender, no masses, bowel sounds normalGait & Station: normalSkin, Inspection: no rashes, lesions, or ulcerationsOrientation: oriented to time, place, and personMood & Affect: no depression, anxiety, or agitationJudgment & Insight: intactCare Management Plan Transitions of CareInboundRate Your HealthIn general, would you say your health is? FairAssessment & Plan Problems:Assessed:Candidiasis of skin (ICD-112.3) (ICD10- B37.2) Assessment: Instructions: 1. repeat diflucan as pt states symptoms have improved but remain slightly2. call with questions3. fu in 1 week4. increase fluids5. return sooner with worseningPatient Instructions/Care Plan: Candidiasis of skin: 1. repeat diflucan as pt states symptoms have improved but remain slightly2. call with questions3. fu in 1 week4. increase fluids5. return sooner with worsening Plan developed in collaboration with patient and/or familyMedications:DIFLUCAN 100 MG ORAL TABLETLAMISIL 250 MG ORAL TABLETCICLOPIROX SOLUTIONKETOCONAZOLE CREAMMONTELUKAST SODIUM 10 MG ORAL TABLETVITAMIN D3 50 MCG (1999 UT) ORAL CAPSULECETIRIZINE HCL 10 MG ORAL TABLETOMEPRAZOLE 40 MG ORAL CAPSULE DELAYED RELEASEMedication Changes:New Prescription:DIFLUCAN 100 MG ORAL TABLET-1 tablet every other day for 3 doses Qty: 3[Tablet] Refills: 0 Method: ElectronicRemoved:DIFLUCAN 150 MG ORAL TABLET-Take 1 tablet po daily x 3 days Qty: 3[Tablet] Refills: 0Allergies:* SEASONAL (Moderate)Orders:Adult - Ofc Vst, EST, Level III [CPT-25636] Medications:DIFLUCAN 100 MG ORAL TABLET (FLUCONAZOLE) 1 tablet every other day for 3 doses #3[Tablet] x 0 Route:ORAL Entered and Authorized by: Arjun BINGHAM Method used: Electronically to [facility] (retail) [address] [place] [address] Ph: [phone] Note to Pharmacy: Route: ORAL; RxID: [id number] DIFLUCAN 150 MG ORAL TABLET (FLUCONAZOLE) Take 1 tablet po daily x 3 days #3[Tablet] x 0 Route:ORAL Entered by: Corrina Napoles Authorized by: Anthony BAHENA Method used: Electronically to [facility] (retail) [address] [place] [address] RxID: [id number] signed by Arjun BINGHAM on 04/22/2020 at 4:15 PM Name Value Range Interpretation Code Description Data Kayleigh rce(s) Supporting Document(s) ID Date Data Source [id number] 04/12/2020 03:31:[address] [facility] Measurements & CalculationsHeight: 72 inches 182.88 cm Weight: 251.2 pounds 114.18 kg Body Mass Index (BMI): 34.19BMI Interpretation: ObeseBody Surface Area (BSA): 2.35Vital SignsTemperature: 96.5F 35.83C tympanic Pulse Rate: 65 beats/minuteRespiratory Rate: 16 respirations/minuteBlood Pressure: 116/79 left arm sitting automaticO2 Saturation: 98% room airVital Signs performed by: Corrina Napoles , April 12, 2020 3:39 PMVital Signs performed by: Anthony BAHENA, April 12, 2020 3:53 PMInitial Intake Information From: patientRoom #: 2Infectious Disease / Travel ScreeningRecent travel for you or any close contacts? NoHave you had any close contact with anyone diagnosed with or under investigation for COVID-19 (coronavirus)? NoFever? NoRespiratory symptoms: cough, cold, congestion, shortness of breath, difficulty breathing? NoLoss of smell? NoLoss of taste? NoSmoking, Tobacco, Vaping or Smoke Exposure StatusSmoke Status: current every day smokerTobacco Use: YesAdv to Quit: YesDo you vape? NoPassive Smoke Exposure: YesHealthcare HistorySince your last office visit...Have you been admitted to the hospital? NoHave you been to an emergency room (ER) or urgent care clinic? Yes - well now -yeast infectionHave you seen another healthcare provider? Yes - podiatridt and ent both gave antibioticsHave you seen a dentist? Yes - aqua dentalIntake performed by: Corrina Napoles , April 12, 2020 3:34 PMRate Your HealthIn general, would you say your health is? FairPain AssessmentAre you currently having any pain which... You would like your provider to address? No Affects your activity level? NoDepression Screening - PHQ-2Over the last two weeks, have you... Had little interest or pleasure in doing things? Several days Been feeling down, depressed, or hopeless? Several days PHQ-2 Score: 2Anxiety Screening - GRACE-2Over the last two weeks, have you been... Feeling nervous, anxious, or on edge? Nearly every day Unable to stop or control worrying? Nearly every day GRACE-2 Score: 6Food InsecurityWithin the past year...Did you worry whether your food would run out before you got money to buy more? NoWas there a time when the food you bought didn't last and you didn't have money to get more? NoNurses Note would like mental health referral would like a stronger allergy medicationGeneralized Anxiety Disorder 7-Item Screening (GRACE-7)Answer Guide:0 = Not at all1 = Several days2 = Over half the days3 = Nearly every dayOver the last 2 weeks, how often have you been bothered by the following problems?Feeling nervous, anxious, or on edge: 3Not being able to stop or control worryinWorrying too much about different things: 3Trouble relaxinBeing so restless that it's hard to sit still: 0Becoming easily annoyed or irritable: 3Feeling afraid as if something awful might happen: 3Answer Guide:0 = Not difficult at all1 = Somewhat difficult2 = Very difficult3 = Extremely di fficultHow difficult have these made it for you to do your work, take care of things at home, or get along with other people? 0GAD-7 Screening Results GRACE-2 Score: 6GAD-7 Score: 15Functional Impairment: Not difficult at allRecommendation: Severe anxietyPHQ-9 1. Over the last 2 weeks, patient reports the following frequency of symptoms: a. Little interest or pleasure in doing things -Several days b. Feeling down, depressed, or hopeless -Several days c. Trouble falling asleep, staying asleep, or sleeping too much -Not at all d. Feeling tired or having little energy - Not at all e. Poor appetite or overeating -Several days f. Feeling bad about yourself, feeling that you are a failure, or feeling that you have let yourself or your family down -Not at al l g. Trouble concentrating on things such as reading the newspaper or watching television - Not at all h. Moving or speaking so slowly that other people could have noticed. Or being so fidgety or restless that you have been moving around a lot more than usual -Not at all i. Thinking that you would be better off or that you want to hurt yourself in some way -Not at all2. If you checked off any problems, how difficult have these problems made it for you to do your work, take care of things at home, or get along with other people? - Not Difficult at AllToday's PHQ-9 Results Score: 3 Severity: Minimal Diagnosis Recommendation: No recommendation Functional Impairment: Not Difficult at AllToday's Follow-Up Action Depression follow-up done. Follow-Up Action: N/A - no follow-up necessaryScreening, Brief Intervention, & Referral to Treatment (SBIRT)Patient declined SBIRT screening.Performed by: Corrina Napoles , April 12, 2020 3:36 PMPatient History Medical History:AsthmaAsthma/PTSDsocial disorderleft orbital hx with recurrent sinusitisSurgical History:right inguinal hernia x2 - childhood, ~2009orbital surgery-[facility] ENTFamily History:[place] - Female under age 65 (Mother)Sudden cardiac (Mother)Social/Personal History: Advised to Quit/Tobacco Education: YesChief Complaintreferral to urology/medication for yeast infection did not helping still having dischargeHistory of Present Illness (HPI)Pt is a 35 y/o male, presents for follow-up yeast infection.Pt was seen at [facility] a few weeks ago, tested negative for STIs. Pt states his was diagnosed with yeast infection prior to his diagnosis. He then returned and was treated himself for yeast infection. Was treated with Flagyl and Diflucan. Continues to have chunky white discharge and burning at urethral opening skin. Pt states he is on Amoxicillin Clavulanic acid (high dose) and Terbinafine, from ENT and podiatry. He is wondering if these medications are contributing to the yeast infection, states he stopped them both for the last few days. Pt feels the allergy medication is not effective, still has eye crusting and nasal drainage constantly. Pt requests counseling referral. Transitions of Care InboundProblem ReviewProblem List was reviewed and/or updated during this visit.Medication Reconciliation & ReviewMedication List was reviewed and/or updated during this visit, including review of any fvpx-nth-krxpsio medications, herbal therapies, and/or supplements.Allergy ReviewAllergy List was reviewed and/or updated during this visit.Adult Preventive CareScreening Tobacco Screening: Smoking Status: current every day smoker (04/12/2020) Tobacco Use: Currently (04/12/2020) Advised to Quit: Yes (04/12/2020)Review of Systems General: Denies loss of appetite, chills, dizziness, fatigue, fever. Eyes: Complains of see HPI, discharge. Denies blurring of vision, double vision, eye pain, eye swelling, redness. Ears/Nose/Throat: Complains of nasal congestion, runny nose. Denies earache, sore throat, swollen glands. Cardiovascular: Denies chest pain, p alpitations, feeling faint. Respiratory: Denies cough, difficulty breathing, shortness of breath. Gastrointestinal: Denies nausea, vomiting, diarrhea, pain or discomfort. Genitourinary: Complains of see HPI, penile discharge, genital burning. Denies urinary frequency, urinary hesitancy, urinary urgency, incomplete emptying, blood in urine, penile sores. Psychiatric: Complains of feeling stressed. Physical ExamGeneral Appearance: well nourished, well hydrated, no acute distressEyes, External: conjunctivae and lids normal, EOMIRespiratory, Auscultation: clear to auscultation bilaterally; no rales, rhonchi, or wheezesCardiovascular, Auscultation: S1, S2 audible; no murmur, rub, or gallop; RRRPeripheral Circulation: no clubbing, cyanosis, edema, or varicositiesAbdomen: soft, non-tender, no masses, bowel sounds normalExternal Genitalia: exam deferred as this was recently evaluated and symptoms are not new compared to initial presentationGait & Station: normalOrientation: oriented to time, place, and personJudgment & Insight: intactCare Management Plan Transitions of CareInboundRate Your HealthIn general, would you say your health is? FairAssessment & Plan Problems:Added: Candidiasis of skin (ICD-112.3) (FYG58-E08.2) Assessment: Instructions: Diflucan daily x 3 days. Some irritation may linger for a few days to a week but that should improve on its own. No intercourse until symptoms are entirely gone for 1 week, or you risk infecting your partner. Call your ENT provider to request an alternative antibiotic, instead of the amoxicillin.Assessed:Seasonal allergic rhinitis (ICD- 477.9) (ADF77-Y60.2) Assessment: Instructions: Continue Cetirizine in the morning and add Montelukast at bedtime daily.PTSD (ICD-309.81) (QYL68-E87.10) Assessment: Instructions: Referred for counseling services.Patient Instructions/Care Plan: Candidiasis of skin: Diflucan daily x 3 days. Some irritation may linger for a few days to a week but that should improve on its own. No intercourse until symptoms are entirely gone for 1 week, or you risk infecting your partner. Call your ENT provider to request an alternative antibiotic, instead of the amoxicillin.Seasonal allergic rhinitis: Continue Cetirizine in the morning and add Montelukast at bedtime daily.PTSD: Referred for counseling services. Plan developed in collaboration with patient and/or familyMedications:LAMISIL 250 MG ORAL TABLETCICLOPIROX SOLUTIONKETOCONAZOLE CREAMDIFLUCAN 150 MG ORAL TABLETMONTELUKAST SODIUM 10 MG ORAL TABLETVITAMIN D3 50 MCG (1999 [place]) ORAL CAPSULECETIRIZINE HCL 10 MG ORAL TABLETOMEPRAZOLE 40 MG ORAL CAPSULE DELAYED RELEASEMedication Changes:Added: KETOCONAZOLE CREAM-60gm apply to bottom of feet dailyCICLOPIROX SOLUTION-30gm apply between toes to affected area once dailyLAMISIL 250 MG ORAL TABLET-1 tablet po three times a day with foodNew Prescription:MONTELUKAST SODIUM 10 MG ORAL TABLET-Take 1 tablet po daily at bedtime Qty: 30[Tablet] Refills: 5 Method: ElectronicDIFLUCAN 150 MG ORAL TABLET-Take 1 tablet po daily x 3 days Qty: 3[Tablet] Refills: 0 Method: ElectronicAllergies:* SEASONAL (Moderate)Orders:Mental Health Consult [CPT-51639] Adult - Ofc Vst, EST, Level III [CPT-03133] Follow-Up Return to clinic: as needed Clinical Visit Summary CompletedMedications:DIFLUCAN 150 MG ORAL TABLET (FLUCONAZOLE) Take 1 tablet po daily x 3 days #3[Tablet] x 0 Route:ORAL Entered and Authorized by: Anthony BAHENA Method used: Electronically to [facility] (retail) [address] [place] [address] Note to Pharmacy: Route: ORAL; Indications: CANDIDIASIS OF SKIN RxID: [id number] SODIUM 10 MG ORAL TABLET (MONTELUKAST SODIUM) Take 1 tablet po daily at bedtime #30[Tablet] x 5 Route:ORAL Entered and Authorized by: Anthony BAHENA Method used: Electronically to [facility] (retail) [address] [place] [id number] Note to Pharmacy: Route: ORAL; Indications: SEASONAL ALLERGIC RHINITIS;CHRONIC FRONTAL SINUSITIS RxID: [id number] signed by Anthony BAHENA on 04/18/2020 at 11:15 AM Name Value Range Interpretation Code Description Data Kayleigh rce(s) Supporting Document(s) ID Date Data Source [id number] 03/08/2020 11:44:[address] [facility] Measurements & CalculationsHeight: 72 inches (6 ft. 0 in.) 182.88 cm Weight: 245 pounds 111.36 kg Body Mass Index (BMI): 33.35BMI Interpretation: ObeseBody Surface Area (BSA): 2.32Weight Management Education Done (Nutrition/Physical Activity)Vital SignsTemperature: 96.9F tympanic Pulse Rate: 70 beats/minuteRespiratory Rate: 18 respirations/minuteBlood Pressure: 122/86 right arm sitting automaticO2 Saturation: 97% room airVital Signs performed by: Lashonda Collier LPN, March 08, 2020 11:54 AMVital Signs performed by: Anthony BAHENA, March 08, 2020 12:01 PMInitial Intake Information From: patientRoom #: 2Infectious Disease / Travel ScreeningRecent travel for you or any close contacts? NoHave you had any close contact with anyone diagnosed with or under investigation for COVID-19 (coronavirus)? NoFever? NoRespiratory symptoms: cough, cold, congestion, shortness of breath, difficulty breathing? NoLoss of smell? NoLoss of taste? NoSmoking, Tobacco, Vaping or Smoke Exposure StatusSmoke Status: current every day smokerTobacco Use: YesAdv to Quit: YesDo you vape? NoPassive Smoke Exposure: YesHealthcare HistorySince your last office visit...Have you been admitted to the hospital? NoHave you been to an emergency room (ER) or urgent care clinic? NoHave you seen another healthcare provider? NoHave you seen a dentist? Yes - aqua dentalIntake performed by: Lashonda Collier LPN, March 08, 2020 11:47 AMRate Your HealthIn general, would you say your health is? GoodPain AssessmentAre you curre ntly having any pain which... You would like your provider to address? Yes Affects your activity level? NoDepression Screening - PHQ-2Over the last two weeks, have you... Had little interest or pleasure in doing things? Not at all Been feeling down, depressed, or hopeless? Not at all PHQ-2 Score: 0Anxiety Screening - GRACE-2Over the last two weeks, have you been... Feeling nervous, anxious, or on edge? Several days Unable to stop or control worrying? Several days GRACE-2 Score: 2Generalized Anxiety Disorder 7-Item Screening (GRACE-7)Answer Guide:0 = Not at all1 = Several days2 = Over half the days3 = Nearly every dayOver the last 2 weeks, how often have you been bothered by the following problems?Feeling nervous, anxious, or on edge: 1Not being able to stop or control worryinWorrying too much about different things: 1Trouble relaxinBeing so restless that it's hard to sit still: 0Becoming easily annoyed or irritable: 1Feeling afraid as if something awful might happen: 0Answe r Guide:0 = Not difficult at all1 = Somewhat difficult2 = Very difficult3 = Extremely difficultHow difficult have these made it for you to do your work, take care of things at home, or get along with other people? 1GAD-7 Screening Results GRACE-2 Score: 2GAD-7 Score: 4Functional Impairment: Somewhat difficultRecommendation: Minimal anxietyPain AssessmentPain ScaleNumeric Rating Scale: 5 / 10Location: right side abd painDuration: monthsCharacter/Quality: . tightnessPRAPARE Sociodemographic Characteristics Race: Black or Ethnicity: Not or Preferred Language: EnglishFamily and Home Address: [address] [place] [address] What is your housing situation today? I have housing Are you worried about losing your housing? NoMoney and Resources What is the highest level of school that you have finished? high school graduate Employed? No Are you seeking work? Yes Insurance: Managed Care - [facility] Community PlanIn the past year, have you or any family members you live with been unable to get any of the following when it was really needed? Denies Insecurity: food, utilities, clothing, housekeeper child care, phone, legal services, otherIn the past year, have you had trouble affording costs associated with health insurance (such as deductibles, co-payments, etc.)? NoSocial and Emotional Health How often do you see or talk to people that you care about and feel close to? More than 5 times a week How stressed are you? Quite a bitAdditional Optional Domains In the past 3 months, have you spent more than 2 nights in a row in a skilled nursing, nursing home, residential center or juvenile correctional facility? No Has lack of transportation kept you from medical appointments or from getting your medications? NoIn the past year, have you had trouble getting any of the following when it was really needed (check all that apply)?noneIn the past year, have you had trouble paying the costs associated with health care or medicine (such as co-payments, costs for services, prices of medicines)? NoHow confident are you that you can control and manage most of your health problems? Very confident Are you a refugee? No (Country of origin: [place]) Do you feel physically and emotionally safe where you live? Yes In the past year, have you been afraid of a partner, ex-partner? YesScreening, Brief Intervention, & Referral to Treatment (SBIRT)Pre-Screening Questions How many times have you have 5 or more drinks in a day? 150How many times have you used an illegal drug or used a prescription medication for a non-medical reason? 0Patient History Medical History:AsthmaAsthma/PTSDsocial disorderleft orbital hx with recurrent sinusitisSurgical History:right inguinal hernia x2 - childhood, ~2010orbital surgery-[facility] ENTFamily History:[place] - Female under age 65 (Mother)Sudden cardiac (Mother)Social/Personal History: Advised to Quit/Tobacco Education: YesChief Complaintannual examHistory of Present Illness (HPI)34 yo male here for annual exam.Pt had fasting labs 03/01/2020: slightly elevated fasting glucose and vitamin D deficiency at 15, otherwise unremarkable. Pt states his only concern is the tightness in the right upper abdomen, intermittent but persistantly symptomatic despite omeprazole and watchful diet. Pt states he would like something for his seasonal allergies.Transitions of Care InboundProblem ReviewProblem List was reviewed and/or updated during this visit.Medication Reconciliation & ReviewMedication List was reviewed and/or updated during this visit, including review of any xnyw-xzk-typxnpy medications, herbal therapies, and/or supplements.Allergy ReviewAllergy List was reviewed and/or updated during this visit.Adult Preventive CareProvider Calculated and Reviewed all Clinical Protocols for patient today. Screening Tobacco Screening: Smoking Status: current every day smoker (03/08/2020) Tobacco Use: Currently (03/08/2020) Advised to Quit: Yes (03/08/2020)Labs/Meds/Other Counseling- Nutrition and Physical Activity:BMI Interpretation: Obese (03/08/2020) Counseling: Done (03/08/2020) Physical Activity: Done (03/08/2020)Review of Systems General: Denies chills, dizziness, fatigue, fever, headache, feeling ill . Eyes: Denies blurring of vision, double vision. Ears/Nose/Throat: Complains of nasal congestion, runny nose. Denies earache, decreased hearing, sore throat, difficulty swallowing, tooth pain, swollen glands. recurrent sinusitis-pending ENT referralCardiovascular: Denies chest pain, palpitations, feeling faint, peripheral edema, elevated blood pressure. Respiratory: Denies cough,

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
[2020-10-29] MEDS ORDERED: KETOROLAC 30 MG/ML 1ML VIAL IV ONE (16:15)
[2020-10-29] MEDS ORDERED: diazePAM 10MG/2ML SYRINGE (J3360 PER 5MG) IV ONE ×2 (16:15→18:15)
[2020-10-29 16:49] LABS: BASO % 0.3 % (0.0-1.0); EOS # 0.1 10^3/uL (0.0-0.5); EOS % 1.6 % (0.0-3.0); HEMATOCRIT 40.9 % (42.0-52.0); LYMPH # 2.1 10^3/uL (1.5-5.0); LYMPH % 33.6 % (24.0-44.0); MEAN CORPUSCULAR HEMOGLOBIN 28.8 pg (27.0-33.0); MEAN CORPUSCULAR HGB CONC 31.8 g/dl (32.0-36.5); MEAN CORPUSCULAR VOLUME 90.7 fl (80.0-96.0); MONO # 0.9 10^3/uL (0.0-0.8); MONO % 14.9 % (0.0-5.0); NEUTROPHILS # 3.1 10^3/uL (1.5-8.5); NEUTROPHILS % 49.3 % (36.0-66.0); PLATELET COUNT, AUTOMATED 185 10^3/uL (150-450); RED BLOOD COUNT 4.51 10^6/uL (4.30-6.10); WHITE BLOOD COUNT 6.3 10^3/uL (4.0-10.0)
[2020-10-29] MEDS ORDERED: ISOVUE-370 76% 100ML VIAL As Ordered ONE (17:03)
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
[2020-10-29] MEDS ORDERED: ROBA750T4 PO (18:21)
[2020-10-29] MEDS ORDERED: ANEC4CRE3 TOP (18:21)
[2020-10-29] MEDS ORDERED: NAPR-837 PO (18:21)
[2020-10-29 18:38] VITALS: BP 139/94
== END 2020-10-29 18:44 | disposition home or self-care (01) ==
LOC: M ED 14:32
DX: S16.1XXA Strain of muscle, fascia and tendon at neck level, initial encounter (principal); M54.9 Dorsalgia, unspecified; R07.82 Intercostal pain; V49.40XA Driver injured in collision with unspecified motor vehicles in traffic accident, initial encounter; J45.909 Unspecified asthma, uncomplicated; F17.200 Nicotine dependence, unspecified, uncomplicated; Z79.51 Long term (current) use of inhaled steroids; Z79.899 Other long term (current) drug therapy
CPT/HCPCS: 70450; 71101; 72125; 72128; 74177; 80047; 85025; 96374; 96375; 96376; 99283; J1885; J3360; Q9967

== ENCOUNTER → 2020-11-13 | Outpatient (CLI) | payer OTHER ==
[~2020-11-13] MED LIST changes: +ANEC4CRE3 TOP; +NAPR-837 PO; +ROBA750T4 PO
--- NOTE | 2020-11-14 04:46 | REP ---
INDICATION: PAIN COMPARISON: None. TECHNIQUE: AP, lateral right tibia/fibula. FINDINGS: Mild degenerative changes to the knee includes subtle tricompartmental cortical irregularity and marginal spurring. There is no evidence for acute fracture or dislocation. No subcutaneous emphysema or foreign body. IMPRESSION: Mild tricompartmental degenerative changes at the knee. No acute fracture or dislocation. <Electronically signed by Bert Rushing > 11/14/20 0448
== END ==
LOC: M WUC 15:02
PROVIDERS: ATTEND Physician Assistant
DX: M79.661 Pain in right lower leg (principal); M17.11 Unilateral primary osteoarthritis, right knee

== ENCOUNTER → 2020-12-26 | Outpatient (REF) | payer OTHER | LOC: M LAB REF 09:33 | PROVIDERS: ATTEND Physician Assistant | DX: Z11.3 Encounter for screening for infections with a predominantly sexual mode of transmission (principal) ==

== ENCOUNTER 2021-01-08 12:28 | Emergency (ER) | payer OTHER ==
[~2021-01-08] VITALS: Ht 182.9 cm; Wt 100.0 kg
[2021-01-08] MEDS ORDERED: AMOX500C (12:52)
[2021-01-08] MEDS ORDERED: BACL10TA2 (12:52)
[2021-01-08] MEDS ORDERED: NS 1,000 ML IV ONE (13:50)
[2021-01-08] MEDS ORDERED: PANTOPRAZOLE 40MG VIAL (C9113 PER 1) IV ONE (13:50)
[2021-01-08 14:14] LABS: BASO % 0.3 % (0.0-1.0); EOS # 0.2 10^3/uL (0.0-0.5); EOS % 2.3 % (0.0-3.0); HEMATOCRIT 40.1 % (42.0-52.0); HEMOGLOBIN 13.2 g/dl (13.5-17.5); LYMPH # 1.8 10^3/uL (1.5-5.0); LYMPH % 25.3 % (24.0-44.0); MEAN CORPUSCULAR HEMOGLOBIN 30.6 pg (27.0-33.0); MEAN CORPUSCULAR HGB CONC 32.9 g/dl (32.0-36.5); MONO # 1.1 10^3/uL (0.0-0.8); NEUTROPHILS % 56.7 % (36.0-66.0); PLATELET COUNT, AUTOMATED 210 10^3/uL (150-450); RED BLOOD COUNT 4.31 10^6/uL (4.30-6.10); WHITE BLOOD COUNT 7.1 10^3/uL (4.0-10.0)
[2021-01-08 14:24] LABS: INR 1.01; PROTHROMBIN TIME 13.6 SECONDS (12.5-14.3)
[2021-01-08 14:43] LABS: ALBUMIN 2.7 GM/DL (3.2-5.2); ALT/SGPT 23 U/L (12-78); AMYLASE 74 U/L (25-115); BILIRUBIN,DIRECT 0.3 MG/DL (0.0-0.2); BILIRUBIN,TOTAL 0.6 MG/DL (0.2-1.0); BLOOD UREA NITROGEN 7 MG/DL (7-18); CALCIUM LEVEL 8.4 MG/DL (8.5-10.1); CARBON DIOXIDE LEVEL 27 MEQ/L (21-32); CHLORIDE LEVEL 102 MEQ/L (98-107); CK-MB VALUE MASS < 1.0 NG/ML (<3.6); CPK CREATINE PHOSPHOKINASE 133 U/L (39-308); GLOMERULAR FILTRATION RATE > 60.0 (>60); GLUCOSE, FASTING 84 MG/DL (70-100); LIPASE 66 U/L (73-393); MB/CK RELATIVE INDEX 0.75 (< OR =4); POTASSIUM SERUM 3.6 MEQ/L (3.5-5.1); SODIUM LEVEL 137 MEQ/L (136-145); TOTAL PROTEIN 7.3 GM/DL (6.4-8.2); TROPONIN I < 0.02 NG/ML (< 0.10)
[2021-01-08 15:16] VITALS: BP 159/94
[2021-01-08] MEDS ORDERED: ISOVUE-370 76% 100ML VIAL As Ordered ONE (15:26)
--- NOTE | 2021-01-08 16:27 | REP ---
INDICATION: gi bleed COMPARISON: None. TECHNIQUE: CT Scan of the abdomen and pelvis was performed with intravenous administration of 100 cc of Isovue 370, without oral contrast. Sagittal and coronal reconstruction images are performed. FINDINGS: Lung bases: Unremarkable. Liver: There is diffuse fatty infiltration of the liver. Gallbladder: Unremarkable. Spleen: Normal. Adrenals: Normal. Pancreas: Normal. Kidneys: Normal. Small and large bowel: There may be some mild thickening of the wall of the right colon particularly inferiorly, possibly indicating colitis.. Free fluid: None. Abdominal aorta: No aneurysm or dissection. Adenopathy: None. Appendix: Not inflamed. Osseous structures: Unremarkable. Pelvis: No mass. IMPRESSION: Possible mild right colitis. <Electronically signed by Tom Kwon > 01/08/21 2241
[2021-01-08] MEDS ORDERED: PROT1TAB2 PO (16:50)
--- NOTE | 2021-01-08 21:14 | ECGEPIP ---
[facility] - ED Test Date: 2021-01-08 Pat Name: LAUREN SALCIDO Department: Room: - Gender: Male Document Specialist: DOM : 1985 Requested By: SAPPHIRE BINGHAM Order Number: [id number] Reading MD: William Molina Measurements Intervals [place] Rate: 52 P: 18 SD: 142 QRS: 21 QRSD: 100 T: 27 QT: 490 QTc: 455 Interpretive Statements Sinus bradycardia POOR R WAVE PROGRESSION NSTTW ABNORMALITY(S) SIMILAR TO 09/11/20 Electronically Signed on 01-08-2021 21:14:26 EDT by William Molina
== END 2021-01-08 17:05 | disposition home or self-care (01) ==
LOC: M ED 12:28 → EDBD 12:28 → M ED 17:05
DX: K52.9 Noninfective gastroenteritis and colitis, unspecified (principal); R31.9 Hematuria, unspecified; R22.43 Localized swelling, mass and lump, lower limb, bilateral; R00.1 Bradycardia, unspecified; R07.9 Chest pain, unspecified; Z79.899 Other long term (current) drug therapy
CPT/HCPCS: 74177; 80048; 80076; 81001; 82150; 82550; 82553; 83690; 85025; 85610; 86850; 86900; 86901; 93005; 93041; 96361; 96374; 99285; C9113; Q9967

== ENCOUNTER → 2021-01-13 | Outpatient (CLI) | payer OTHER ==
[~2021-01-13] MED LIST changes: +AMOX500C; +BACL10TA2; +PROT1TAB2 PO
== END ==
LOC: M WUC 14:33
PROVIDERS: ATTEND Physician Assistant
DX: R22.42 Localized swelling, mass and lump, left lower limb (principal)

== ENCOUNTER → 2021-01-27 | Outpatient (REF) | payer OTHER, MEDICAID ==
[2021-01-27 17:12] LABS: BASO # 0.1 10^3/uL (0.0-0.2); EOS # 0.2 10^3/uL (0.0-0.5); EOS % 3.8 % (0.0-3.0); HEMATOCRIT 42.5 % (42.0-52.0); HEMOGLOBIN 13.9 g/dl (13.5-17.5); LYMPH % 40.4 % (24.0-44.0); MEAN CORPUSCULAR HEMOGLOBIN 30.8 pg (27.0-33.0); MEAN CORPUSCULAR HGB CONC 32.7 g/dl (32.0-36.5); MONO # 0.6 10^3/uL (0.0-0.8); MONO % 12.7 % (2.0-8.0); NEUTROPHILS # 2.1 10^3/uL (1.5-8.5); NEUTROPHILS % 41.9 % (36.0-66.0); PLATELET COUNT, AUTOMATED 223 10^3/uL (150-450); RED BLOOD COUNT 4.52 10^6/uL (4.30-6.10)
[2021-01-27 17:31] LABS: ALBUMIN 3.3 GM/DL (3.2-5.2); ALT/SGPT 39 U/L (12-78); BILIRUBIN,TOTAL 0.4 MG/DL (0.2-1.0); BLOOD UREA NITROGEN 10 MG/DL (7-18); CALCIUM LEVEL 8.8 MG/DL (8.5-10.1); CARBON DIOXIDE LEVEL 27 MEQ/L (21-32); CHLORIDE LEVEL 109 MEQ/L (98-107); GLOMERULAR FILTRATION RATE > 60.0 (>60); GLUCOSE, FASTING 78 MG/DL (70-100); POTASSIUM SERUM 4.1 MEQ/L (3.5-5.1); SODIUM LEVEL 141 MEQ/L (136-145); TOTAL PROTEIN 7.8 GM/DL (6.4-8.2)
== END ==
LOC: M LAB REF 16:24
PROVIDERS: ATTEND Physician Assistant
DX: I26.99 Other pulmonary embolism without acute cor pulmonale (principal)

== ENCOUNTER → 2021-01-29 | Outpatient (REF) | payer OTHER, MEDICAID ==
[2021-01-29 14:26] LABS: APPEARANCE, URINE CLEAR (CLEAR); BACTERIA, URINE AUTO NEGATIVE (NEGATIVE); BILIRUBIN, URINE AUTO NEGATIVE (NEGATIVE); BLOOD, URINE BLOOD 3+ (NEGATIVE); COLOR, URINE YELLOW (YELLOW); GLUCOSE, URINE (UA) AUTO NEGATIVE (NEGATIVE); KETONE, URINE AUTO NEGATIVE (NEGATIVE); LEUKOCYTE ESTERASE, URINE AUTO NEGATIVE (NEGATIVE); MUCUS, URINE SMALL (NEGATIVE); NITRITE, URINE AUTO NEGATIVE (NEGATIVE); PROTEIN, URINE AUTO NEGATIVE (NEGATIVE); RBC, URINE AUTO 1 /HPF (0-3); SPECIFIC GRAVITY URINE AUTO 1.016 (1.002-1.035); SQUAMOUS EPITHELIAL CELL UR AU 0 /HPF (0-6); UROBILINOGEN, URINE AUTO 0.2 mg/dL (0.0-2.0); WBC, URINE AUTO 1 /HPF (0-3)
== END ==
LOC: M SMT 13:00
PROVIDERS: ATTEND Urology
DX: R31.29 Other microscopic hematuria (principal)

== ENCOUNTER 2021-02-13 02:22 | Emergency (ER) | payer OTHER ==
[~2021-02-13] VITALS: Ht 182.9 cm; Wt 102.3 kg
[2021-02-13] MEDS ORDERED: IBUP-1022 PO (02:42)
[2021-02-13] MEDS ORDERED: TIZA4TAB4 PO (02:42)
[2021-02-13] MEDS ORDERED: ELIQ5TAB PO (02:42)
[2021-02-13 03:25] LABS: BASO % 0.4 % (0.0-1.0); EOS # 0.2 10^3/uL (0.0-0.5); EOS % 2.1 % (0.0-3.0); HEMATOCRIT 37.5 % (42.0-52.0); HEMOGLOBIN 12.5 g/dl (13.5-17.5); LYMPH # 2.4 10^3/uL (1.5-5.0); LYMPH % 30.6 % (24.0-44.0); MEAN CORPUSCULAR HEMOGLOBIN 31.1 pg (27.0-33.0); MEAN CORPUSCULAR HGB CONC 33.3 g/dl (32.0-36.5); MEAN CORPUSCULAR VOLUME 93.3 fl (80.0-96.0); MONO # 0.8 10^3/uL (0.0-0.8); MONO % 10.8 % (2.0-8.0); NEUTROPHILS # 4.3 10^3/uL (1.5-8.5); NEUTROPHILS % 55.8 % (36.0-66.0); PLATELET COUNT, AUTOMATED 166 10^3/uL (150-450); RED BLOOD COUNT 4.02 10^6/uL (4.30-6.10); WHITE BLOOD COUNT 7.8 10^3/uL (4.0-10.0)
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
[2021-02-13 03:35] LABS: PROTHROMBIN TIME 13.4 SECONDS (12.5-14.3)
[2021-02-13 03:36] LABS: PARTIAL THROMBOPLASTIN TIME 32.4 SECONDS (24.2-38.5)
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
[2021-02-13 03:52] LABS: BLOOD UREA NITROGEN 9 MG/DL (7-18); CALCIUM LEVEL 7.9 MG/DL (8.5-10.1); CARBON DIOXIDE LEVEL 24 MEQ/L (21-32); CHLORIDE LEVEL 109 MEQ/L (98-107); CREATININE FOR GFR 0.93 MG/DL (0.70-1.30); ETHYL ALCOHOL (ETHANOL) 0.082 % (0.000-0.010); GLOMERULAR FILTRATION RATE > 60.0 (>60); GLUCOSE, FASTING 118 MG/DL (70-100); POTASSIUM SERUM 3.7 MEQ/L (3.5-5.1); SODIUM LEVEL 142 MEQ/L (136-145)
[2021-02-13] MEDS ORDERED: diphenhydrAMINE 50MG/ML VIAL (J1200) IV ONE (04:05)
[2021-02-13] MEDS ORDERED: METOCLOPRAMIDE INJ 10MG/2ML VIAL (J2765 PER 1) IV ONE (04:05)
[2021-02-13] MEDS ORDERED: ACETAMINOPHEN *IV* 1,000 MG in IV 1 EA IV ONE (04:05)
[2021-02-13] MEDS ORDERED: NS 1,000 ML IV ONE (04:05)
[2021-02-13 06:01] VITALS: BP 139/80
== END 2021-02-13 06:03 | disposition home or self-care (01) ==
LOC: M ED 02:22
DX: R51.9 Headache, unspecified (principal); Z79.01 Long term (current) use of anticoagulants
CPT/HCPCS: 70450; 72125; 80048; 82077; 85025; 85610; 85730; 96361; 96365; 96375; 99284; J0131; J1200; J2765

== ENCOUNTER → 2021-03-05 | Outpatient (CLI) | payer OTHER ==
[~2021-03-05] MED LIST changes: +ELIQ5TAB PO; +IBUP-1022 PO; +TIZA4TAB4 PO
[2021-03-05 15:55] LABS: ALBUMIN 3.3 GM/DL (3.2-5.2); BILIRUBIN,DIRECT 0.2 MG/DL (0.0-0.2); BILIRUBIN,TOTAL 0.5 MG/DL (0.2-1.0); C REACTIVE PROTEIN QUANTITATIV 0.49 MG/DL (0.00-0.30); TOTAL PROTEIN 7.7 GM/DL (6.4-8.2)
[2021-03-05 16:06] LABS: CLOSTRIDIUM DIFFICILE PCR NEGATIVE (NEGATIVE)
== END ==
LOC: M LAB 14:36
PROVIDERS: ATTEND Internal Medicine Gastroenterology
DX: R10.13 Epigastric pain (principal)

== ENCOUNTER → 2021-07-16 | Outpatient (CLI) | payer OTHER ==
[~2021-07-16] MED LIST changes: +ACET-645 PO; -BACL10TA2; +BACL10TA2 PO; +OMEP-218 PO
== END ==
LOC: M LABSMTC 09:26
PROVIDERS: ATTEND Anesthesiology
DX: Z01.818 Encounter for other preprocedural examination (principal); Z11.52 Encounter for screening for COVID-19

== ENCOUNTER 2021-07-18 09:38 | Day surgery (SDC) | payer OTHER ==
[~2021-07-18] VITALS: Ht 182.9 cm; Wt 103.8 kg
[~2021-07-18 09:38] MED LIST changes: +NS 1,000 ML IV ONE
[2021-07-18] MEDS ORDERED: propofoL 200 MG/20 ML VIAL As Ordered ONE (11:16)
[2021-07-18] MEDS ORDERED: LIDOCAINE 2% 100MG/5ML SDV (FOR ANES.) As Ordered ONE (11:16)
--- NOTE | 2021-07-18 11:52 | ROOR ---
Patient Name: Mine Randall Procedure Date: 07/18/2021 11:14 AM Date of : 1985 Age: 36 Room: [facility] Gender: Male Note Status: Finalized Procedure: Colonoscopy Indications: Hematochezia, Abnormal CT of the GI tract Providers: Nelson Clarke MD Referring MD: SHRUTI Chow Requesting Provider: Medicines: Monitored Anesthesia Care Complications: No immediate complications. Procedure: Pre-Anesthesia Assessment: - Prior to the procedure, a History and Physical was performed, and patient medications and allergies were reviewed. The patient is competent. The risks and benefits of the procedure and the sedation options and risks were discussed with the patient. All questions were answered and informed consent was obtained. Patient identification and proposed procedure were verified by the physician, the nurse and the anesthesiologist in the procedure room. Mental Status Examination: alert and oriented. Airway Examination: normal oropharyngeal airway and neck mobility. Respiratory Examination: clear to auscultation. CV Examination: normal. Prophylactic Antibiotics: The patient does not require prophylactic antibiotics. Prior Anticoagulants: The patient has taken no previous anticoagulant or antiplatelet agents. ASA Grade Assessment: II - A patient with mild systemic disease. After reviewing the risks and benefits, the patient was deemed in satisfactory condition to undergo the procedure. The anesthesia plan was to use monitored anesthesia care (MAC). Immediately prior to administration of medications, the patient was re-assessed for adequacy to receive sedatives. The heart rate, respiratory rate, oxygen saturations, blood pressure, adequacy of pulmonary ventilation, and response to care were monitored throughout the procedure. The physical status of the patient was re-assessed after the procedure. The Colonoscope was introduced through the anus and advanced to the terminal ileum, with identification of the appendiceal orifice and IC valve. The colonoscopy was performed without difficulty. The patient tolerated the procedure well. The quality of the bowel preparation was fair. The terminal ileum, ileocecal valve, appendiceal orifice, and rectum were photographed. Scope insertion time was 2 minutes. Scope withdrawal time was 8 minutes. The total duration of the procedure was 10 minutes. Findings: The perianal and digital rectal examinations were normal. The terminal ileum appeared normal. A 5 mm polyp was found in the ascending colon. The polyp was sessile. The polyp was removed with a jumbo cold forceps. Resection and retrieval were complete. Verification of patient identification for the specimen was done by the physician and nurse using the patient's name, date and medical record number. Estimated blood loss was minimal. Non-bleeding external and internal hemorrhoids were found during retroflexion. The hemorrhoids were medium-sized. No other significant abnormalities were identified in a careful examination of the remainder of the colon. Impression: - Preparation of the colon was fair. - The examined portion of the ileum was normal. - One 5 mm polyp in the ascending colon, removed with a jumbo cold forceps. Resected and retrieved. - Non-bleeding external and internal hemorrhoids. Recommendation: - Patient has a contact number available for emergencies. The signs and symptoms of potential delayed complications were discussed with the patient. Return to normal activities tomorrow. Written discharge instructions were provided to the patient. - High fiber diet. - Continue present medications. - Use fiber, for example Citrucel, Fibercon, Konsyl or Metamucil. - Repeat colonoscopy in 10 years for screening purposes. - Telephone GI clinic for pathology results in 2 weeks. - Return to primary care physician. Procedure Code(s): --- Professional --- 01005, Colonoscopy, flexible; with biopsy, single or multiple Diagnosis Code(s): --- Professional --- K64.8, Other hemorrhoids K63.5, Polyp of colon K92.1, Melena (includes Hematochezia) R93.3, Abnormal findings on diagnostic imaging of other parts of digestive tract CPT copyright 2019 [employer]. All rights reserved. The codes documented in this report are preliminary and upon quality control systems manager review may be revised to meet current compliance requirements. Nelson Clarke MD Nelson Clarke MD 07/18/2021 11:51:56 AM Electronically signed by Nelson Clarke MD Number of Addenda: 0 Note Initiated On: 07/18/2021 11:14 AM Estimated Blood Loss: Estimated blood loss was minimal.
[2021-07-18 12:00] VITALS: BP 114/76
== END 2021-07-18 12:01 | disposition home or self-care (01) ==
LOC: M OPP 09:38
PROVIDERS: ATTEND Internal Medicine Gastroenterology
DX: K92.1 Melena (principal); R93.3 Abnormal findings on diagnostic imaging of other parts of digestive tract; K63.5 Polyp of colon; K64.8 Other hemorrhoids; K21.9 Gastro-esophageal reflux disease without esophagitis; F41.9 Anxiety disorder, unspecified; F43.10 Post-traumatic stress disorder, unspecified; F17.290 Nicotine dependence, other tobacco product, uncomplicated; Z86.711 Personal history of pulmonary embolism; Z79.01 Long term (current) use of anticoagulants; Z79.899 Other long term (current) drug therapy; Z82.49 Family history of ischemic heart disease and other diseases of the circulatory system

== ENCOUNTER → 2021-07-22 | Outpatient (REF) | payer OTHER ==
[~2021-07-22] MED LIST changes: -NS 1,000 ML IV ONE
[2021-07-23 12:13] LABS: GC DNA AMPLIFICATION NEGATIVE (NEGATIVE)
== END ==
LOC: M LAB REF 09:52
PROVIDERS: ATTEND Physician Assistant
DX: R31.9 Hematuria, unspecified (principal)

== ENCOUNTER → 2021-10-30 | Outpatient (REF) | payer OTHER ==
[~2021-10-30] MED LIST changes: +OMEP-173 PO; -OMEP-218 PO; +TIZA10TA PO; -TIZA4TAB4 PO
== END ==
LOC: M SMT 17:13
PROVIDERS: ATTEND Urology
DX: R31.29 Other microscopic hematuria (principal)

== ENCOUNTER 2022-02-18 12:51 | Emergency (ER) | payer OTHER ==
[~2022-02-18] VITALS: Ht 182.9 cm; Wt 109.1 kg
[2022-02-18 12:58] VITALS: BP 164/97
== END 2022-02-18 14:08 | disposition left against medical advice (07) ==
LOC: M ED 12:51
DX: Z53.21 Procedure and treatment not carried out due to patient leaving prior to being seen by health care provider (principal)

== ENCOUNTER → 2022-03-23 | Outpatient (CLI) | payer OTHER | LOC: M LAB 15:16 | PROVIDERS: ATTEND Physician Assistant | DX: E55.9 Vitamin D deficiency, unspecified (principal) ==

== ENCOUNTER → 2022-03-23 | Outpatient (CLI) | payer OTHER | LOC: M PAIN 13:00 | PROVIDERS: ATTEND Nurse Practitioner Family | DX: M54.42 Lumbago with sciatica, left side (principal); M54.41 Lumbago with sciatica, right side; G89.29 Other chronic pain; E55.9 Vitamin D deficiency, unspecified; F17.200 Nicotine dependence, unspecified, uncomplicated; Z86.59 Personal history of other mental and behavioral disorders; Z86.711 Personal history of pulmonary embolism; Z86.718 Personal history of other venous thrombosis and embolism; Z79.01 Long term (current) use of anticoagulants; Z79.899 Other long term (current) drug therapy ==

== ENCOUNTER → 2022-06-19 | Outpatient (CLI) | payer OTHER | LOC: M PAIN 14:30 | PROVIDERS: ATTEND Nurse Practitioner Family | DX: M54.42 Lumbago with sciatica, left side (principal); M54.41 Lumbago with sciatica, right side; G89.29 Other chronic pain; E55.9 Vitamin D deficiency, unspecified; F17.200 Nicotine dependence, unspecified, uncomplicated; Z86.73 Personal history of transient ischemic attack (TIA), and cerebral infarction without residual deficits; Z86.711 Personal history of pulmonary embolism; Z86.718 Personal history of other venous thrombosis and embolism; Z86.59 Personal history of other mental and behavioral disorders; Z79.01 Long term (current) use of anticoagulants; Z79.899 Other long term (current) drug therapy ==

== ENCOUNTER → 2022-08-24 | Outpatient (CLI) | payer OTHER | LOC: M PAIN 08:45 | PROVIDERS: ATTEND Nurse Practitioner Family | DX: M79.10 Myalgia, unspecified site (principal); G89.29 Other chronic pain; E55.9 Vitamin D deficiency, unspecified; F17.200 Nicotine dependence, unspecified, uncomplicated; Z86.59 Personal history of other mental and behavioral disorders; Z86.711 Personal history of pulmonary embolism; Z86.718 Personal history of other venous thrombosis and embolism; Z79.01 Long term (current) use of anticoagulants; Z79.899 Other long term (current) drug therapy ==

== ENCOUNTER → 2023-02-05 | Outpatient (REF) | payer OTHER ==
[2023-02-05 17:35] LABS: ALBUMIN 3.6 G/DL (3.2-5.2); ALKALINE PHOSPHATASE 61 U/L (46-116); ALT/SGPT 17 U/L (7.0-40); AST/SGOT 28 U/L (<34); BILIRUBIN,TOTAL 0.7 MG/DL (0.3-1.2); BLOOD UREA NITROGEN 8 MG/DL (9-23); CALCIUM LEVEL 8.5 MG/DL (8.5-10.1); CARBON DIOXIDE LEVEL 26 MMOL/L (20-31); CHLORIDE LEVEL 103 MMOL/L (98-107); CREATININE FOR GFR 0.82 MG/DL (0.70-1.30); GLOMERULAR FILTRATION RATE > 60.0 (>60); GLUCOSE, FASTING 90 MG/DL (60-100); MAGNESIUM LEVEL 1.8 MG/DL (1.8-2.4); POTASSIUM SERUM 3.4 MMOL/L (3.5-5.1); SODIUM LEVEL 137 MMOL/L (136-145); TOTAL PROTEIN 7.4 G/DL (5.7-8.2)
[2023-02-05 17:36] LABS: TOTAL 25(OH) VITAMIN D 17.8 NG/ML (20.0-100.0)
[2023-02-05 17:40] LABS: HEMOGLOBIN A1c 5.2 % (4.0-6.0)
== END ==
LOC: M LAB REF 16:30
PROVIDERS: ATTEND Physician Assistant
DX: Z11.59 Encounter for screening for other viral diseases (principal); Z87.19 Personal history of other diseases of the digestive system; R11.0 Nausea; R73.03 Prediabetes; E55.9 Vitamin D deficiency, unspecified; M79.604 Pain in right leg

== ENCOUNTER 2023-02-25 01:36 | Emergency (ER) | payer OTHER ==
[~2023-02-25] VITALS: Ht 182.9 cm; Wt 100.0 kg
[2023-02-25 01:45] VITALS: BP 187/109
[2023-02-25] MEDS ORDERED: LOSA25TA13 (01:45)
[2023-02-25] MEDS ORDERED: BUSP1TAB (01:45)
[2023-02-25] MEDS ORDERED: SUCR1TAB56 (01:45)
[2023-02-25] MEDS ORDERED: LEVOTAB10 (01:45)
[2023-02-25] MEDS ORDERED: hydrALAZINE 20MG/ML 1ML VIAL IV ONE (01:50)
[2023-02-25] MEDS ORDERED: NS 1,000 ML IV ONE (01:50)
[2023-02-25] MEDS ORDERED: GI COCKTAIL 50ML BTL(HYOSCYAMINE/MAALOX/LIDOCAINE VISCOUS)(1:3:1) PO ONE (01:55)
[2023-02-25] MEDS ORDERED: LOSARTAN 25 MG TAB PO ONE (01:55)
[2023-02-25 02:27] LABS: BASO # 0.1 10^3/uL (0.0-0.2); BASO % 0.7 % (0.0-1.0); EOS # 0.1 10^3/uL (0.0-0.5); EOS % 1.6 % (0.0-3.0); HEMATOCRIT 41.6 % (42.0-52.0); HEMOGLOBIN 13.7 g/dl (13.5-17.5); LYMPH # 2.3 10^3/uL (1.5-5.0); LYMPH % 33.4 % (24.0-44.0); MEAN CORPUSCULAR HEMOGLOBIN 30.2 pg (27.0-33.0); MEAN CORPUSCULAR HGB CONC 32.9 g/dl (32.0-36.5); MEAN CORPUSCULAR VOLUME 91.6 fl (80.0-96.0); MONO # 0.9 10^3/uL (0.0-0.8); MONO % 13.1 % (2.0-8.0); NEUTROPHILS # 3.5 10^3/uL (1.5-8.5); NEUTROPHILS % 50.9 % (36.0-66.0); PLATELET COUNT, AUTOMATED 193 10^3/uL (150-450); RED BLOOD COUNT 4.54 10^6/uL (4.30-6.10); WHITE BLOOD COUNT 6.9 10^3/uL (4.0-10.0)
[2023-02-25 02:43] LABS: ALBUMIN 3.4 G/DL (3.2-5.2); ALKALINE PHOSPHATASE 65 U/L (46-116); ALT/SGPT 19 U/L (7.0-40); AST/SGOT 22 U/L (<34); BILIRUBIN,TOTAL 0.5 MG/DL (0.3-1.2); BLOOD UREA NITROGEN 10 MG/DL (9-23); CALCIUM LEVEL 8.6 MG/DL (8.5-10.1); CARBON DIOXIDE LEVEL 23 MMOL/L (20-31); CHLORIDE LEVEL 106 MMOL/L (98-107); CREATININE FOR GFR 0.93 MG/DL (0.70-1.30); GLOMERULAR FILTRATION RATE > 60.0 (>60); GLUCOSE, FASTING 102 MG/DL (60-100); POTASSIUM SERUM 3.7 MMOL/L (3.5-5.1); SODIUM LEVEL 140 MMOL/L (136-145); TOTAL PROTEIN 7.3 G/DL (5.7-8.2)
[2023-02-25] MEDS ORDERED: ACETAMINOPH W/CODEINE #3 TAB UD PO ONE (03:05)
[2023-02-25] MEDS ORDERED: APIXABAN 5 MG TAB (ELIQUIS) PO ONE (05:20)
[2023-02-25] MEDS ORDERED: ONDANSETRON 4MG ORAL DISINTEGRATING TAB PO ONE (05:35)
[2023-02-25] MEDS ORDERED: ACETAMINOPHEN TAB 650MG DOSE (2X325MG) PO ONE (05:35)
== END 2023-02-25 05:42 | disposition home or self-care (01) ==
LOC: EDBD 01:36 → M ED 01:36
DX: R42 Dizziness and giddiness (principal); I10 Essential (primary) hypertension; E86.1 Hypovolemia; K21.9 Gastro-esophageal reflux disease without esophagitis; F17.200 Nicotine dependence, unspecified, uncomplicated; Z86.718 Personal history of other venous thrombosis and embolism; Z79.1 Long term (current) use of non-steroidal anti-inflammatories (NSAID); Z79.01 Long term (current) use of anticoagulants; Z79.811 Long term (current) use of aromatase inhibitors; Z79.899 Other long term (current) drug therapy
CPT/HCPCS: 70450; 71045; 80053; 85025; 93005; 96374; 99284; J0360

== ENCOUNTER → 2023-09-07 | Outpatient (REF) ==
[~2023-09-07] MED LIST changes: +BUSP1TAB; +LEVOTAB10; +LOSA25TA13; +SUCR1TAB56
== END ==
LOC: M PLAIMG 12:19
PROVIDERS: ATTEND Internal Medicine
DX: R52 Pain, unspecified (principal)

== ENCOUNTER → 2023-10-07 | Outpatient (CLI) | payer OTHER ==
[2023-10-07 12:28] LABS: HEMATOCRIT 43.9 % (42.0-52.0); HEMOGLOBIN 14.3 g/dl (13.5-17.5); MEAN CORPUSCULAR HEMOGLOBIN 30.8 pg (27.0-33.0); MEAN CORPUSCULAR HGB CONC 32.6 g/dl (32.0-36.5); MEAN CORPUSCULAR VOLUME 94.4 fl (80.0-96.0); PLATELET COUNT, AUTOMATED 149 10^3/uL (150-450); RED BLOOD COUNT 4.65 10^6/uL (4.30-6.10); WHITE BLOOD COUNT 3.6 10^3/uL (4.0-10.0)
[2023-10-07 12:40] LABS: HEMOGLOBIN A1c 5.3 % (4.0-6.0)
[2023-10-07 12:57] LABS: PSA SCREENING 0.47 NG/ML (< 4.00)
[2023-10-07 13:01] LABS: CHOLESTEROL RISK RATIO 2.11 (<5); HDL CHOLESTEROL 71.9 MG/DL (>40); LDL CHOLESTEROL 64.1 MG/DL (<100); NON-HDL-C 80.1 MG/DL; THYROID STIMULATING HORMONE 1.411 uIU/ML (0.55-4.78)
[2023-10-07 13:02] LABS: TOTAL 25(OH) VITAMIN D 8.8 NG/ML (20.0-100.0)
== END ==
LOC: M LAB 11:45
PROVIDERS: ATTEND Physician Assistant
DX: R73.03 Prediabetes (principal); F52.21 Male erectile disorder; E66.9 Obesity, unspecified; Z13.220 Encounter for screening for lipoid disorders; E55.9 Vitamin D deficiency, unspecified; I10 Essential (primary) hypertension

== ENCOUNTER 2023-12-03 11:40 | Observation (INO) | payer OTHER ==
[~2023-12-03] VITALS: Ht 182.9 cm; Wt 86.2 kg
[2023-12-03] MEDS: FOLIC ACID 1MG TAB PO SCH (09:00)
[~2023-12-03 11:40] MED LIST changes: +ACET300T48 PO; +B-1100TA2 PO; -BUSP1TAB; +BUSP1TAB PO; +ERGO500029 PO; +FOLI1TAB11 PO; -LEVOTAB10; +LEVOTAB10 PO; -LOSA25TA13; +LOSA25TA13 PO; +OMEP40CA5 PO; +SUCR1ORA PO
[2023-12-03] MEDS: NS 1,000 ML IV ONE (12:42)
[2023-12-03 14:20] LABS: BASO % 0.4 % (0.0-1.0); EOS # 0.2 10^3/uL (0.0-0.5); EOS % 3.1 % (0.0-3.0); HEMATOCRIT 37.4 % (42.0-52.0); HEMOGLOBIN 12.4 g/dl (13.5-17.5); LYMPH # 1.8 10^3/uL (1.5-5.0); LYMPH % 33.2 % (24.0-44.0); MEAN CORPUSCULAR HEMOGLOBIN 31.6 pg (27.0-33.0); MEAN CORPUSCULAR HGB CONC 33.2 g/dl (32.0-36.5); MEAN CORPUSCULAR VOLUME 95.2 fl (80.0-96.0); MONO # 0.7 10^3/uL (0.0-0.8); MONO % 13.3 % (2.0-8.0); NEUTROPHILS # 2.7 10^3/uL (1.5-8.5); NEUTROPHILS % 49.8 % (36.0-66.0); PLATELET COUNT, AUTOMATED 167 10^3/uL (150-450); RED BLOOD COUNT 3.93 10^6/uL (4.30-6.10); WHITE BLOOD COUNT 5.5 10^3/uL (4.0-10.0)
[2023-12-03] MEDS ORDERED: KETOROLAC 30 MG/ML 1ML VIAL IV PRN (14:30)
[2023-12-03 14:49] LABS: LIPASE 50 U/L (12-53)
[2023-12-03 14:50] LABS: AMYLASE 82 U/L (30-118)
[2023-12-03 14:51] LABS: ALBUMIN 3.3 G/DL (3.2-5.2); ALKALINE PHOSPHATASE 49 U/L (46-116); ALT/SGPT 9 U/L (7.0-40); AST/SGOT 14 U/L (<34); BILIRUBIN,TOTAL 0.6 MG/DL (0.3-1.2); BLOOD UREA NITROGEN 6 MG/DL (9-23); CALCIUM LEVEL 8.4 MG/DL (8.5-10.1); CARBON DIOXIDE LEVEL 27 MMOL/L (20-31); CHLORIDE LEVEL 107 MMOL/L (98-107); CREATININE FOR GFR 0.63 MG/DL (0.70-1.30); GLOMERULAR FILTRATION RATE > 60.0 (>60); GLUCOSE, FASTING 83 MG/DL (60-100); POTASSIUM SERUM 3.4 MMOL/L (3.5-5.1); SODIUM LEVEL 140 MMOL/L (136-145); TOTAL PROTEIN 6.4 G/DL (5.7-8.2)
[2023-12-03 15:33] VITALS: BP 152/99; TEMP 97.4; O2SAT 100
[2023-12-03] MEDS: LR 1,000 ML IV SCH (15:35)
[2023-12-03] MEDS: GASTROGRAFIN SOLUTION 30ML PO SCH (16:16)
[2023-12-03] MEDS: KETOROLAC 30 MG/ML 1ML VIAL IV ONE (16:16)
[2023-12-03] MEDS: PANTOPRAZOLE 40MG VIAL IV SCH (16:16)
[2023-12-03] MEDS: NS 1,000 ML IV SCH (17:02)
[2023-12-03] MEDS ORDERED: ISOVUE-370 76% 100ML VIAL As Ordered ONE (17:33)
[2023-12-03] MEDS: SUCRALFATE SUSP 1GM/10ML UD PO SCH (18:05)
[2023-12-03] MEDS: PERCOCET 5MG/325MG TAB PO PRN (18:10)
[2023-12-03] MEDS: KETOROLAC 30 MG/ML 1ML VIAL IV PRN (20:23)
[2023-12-03] MEDS ORDERED: LORazepam 2 MG TAB PO PRN (20:45)
[2023-12-03 20:54] VITALS: BP 145/100; TEMP 97; O2SAT 98
[2023-12-03 21:25] VITALS: BP 156/100
[2023-12-03] MEDS: SENOKOT S TAB PO SCH (21:35)
[2023-12-03] MEDS: THIAMINE 100 MG TAB PO SCH (21:35)
[2023-12-03] MEDS: BACLOFEN 10 MG TAB PO SCH (21:35)
[2023-12-03] MEDS: MIRALAX *UNIT DOSE* 17GM PACKET PO SCH (21:35)
[2023-12-03 22:05] LABS: AMPHETAMINES LEVEL URINE NEGATIVE (NEGATIVE); BARBITURATES URINE NEGATIVE (NEGATIVE); BENZODIAZEPINES URINE NEGATIVE (NEGATIVE); CANNABINOIDS URINE NEGATIVE (NEGATIVE); COCAINE METABOLITE URINE NEGATIVE (NEGATIVE); METHADONE URINE NEGATIVE (NEGATIVE); PHENCYCLIDINE URINE NEGATIVE (NEGATIVE)
[2023-12-03 22:06] LABS: OPIATES URINE POSITIVE (NEGATIVE)
[2023-12-03 22:47] LABS: ETHYL ALCOHOL (ETHANOL) < 0.003 % (0.000-0.010)
[2023-12-03 22:48] LABS: BLOOD UREA NITROGEN 6 MG/DL (9-23); CALCIUM LEVEL 8.1 MG/DL (8.5-10.1); CARBON DIOXIDE LEVEL 27 MMOL/L (20-31); CHLORIDE LEVEL 106 MMOL/L (98-107); CREATININE FOR GFR 0.58 MG/DL (0.70-1.30); GLOMERULAR FILTRATION RATE > 60.0 (>60); GLUCOSE, FASTING 71 MG/DL (60-100); POTASSIUM SERUM 3.5 MMOL/L (3.5-5.1); SODIUM LEVEL 138 MMOL/L (136-145)
[2023-12-03 23:09] LABS: GC DNA AMPLIFICATION NEGATIVE (NEGATIVE)
[2023-12-04] MEDS ORDERED: MULTIVITAMINS/MINERALS THERAP 1 TAB PO SCH (09:00)
== END 2023-12-03 23:20 | disposition left against medical advice (07) ==
LOC: M OPP 11:40 → M ED INP 11:41 → M MS5PR 15:25
PROVIDERS: ADMIT Internal Medicine Nephrology; ATTEND Internal Medicine Nephrology
DX: R10.11 Right upper quadrant pain (principal); Z53.29 Procedure and treatment not carried out because of patient's decision for other reasons; K21.9 Gastro-esophageal reflux disease without esophagitis; R13.10 Dysphagia, unspecified; F10.20 Alcohol dependence, uncomplicated; K76.0 Fatty (change of) liver, not elsewhere classified; F17.290 Nicotine dependence, other tobacco product, uncomplicated; Z79.899 Other long term (current) drug therapy
CPT/HCPCS: 74177; 80048; 80053; 80307; 81001; 82077; 82150; 83605; 83690; 85025; 87486; 87581; 87633; 87798; 87810; 87850; C9113; J1885; Q9963; Q9967

== ENCOUNTER → 2024-04-27 | Outpatient (CLI) | payer OTHER | LOC: M RAD 12:51 | PROVIDERS: ATTEND Physician Assistant | DX: M54.2 Cervicalgia (principal); M54.6 Pain in thoracic spine; M54.50 Low back pain, unspecified; R07.81 Pleurodynia; V89.9XXD Person injured in unspecified vehicle accident, subsequent encounter; Y93.9 Activity, unspecified; Y92.9 Unspecified place or not applicable ==

== ENCOUNTER 2024-05-12 20:17 | Inpatient (IN) | payer OTHER ==
[~2024-05-12] VITALS: Ht 182.9 cm; Wt 97.1 kg
[2024-05-12 22:55] LABS: BASO % 0.3 % (0.0-1.0); EOS # 0.1 10^3/uL (0.0-0.5); EOS % 0.9 % (0.0-3.0); HEMATOCRIT 40.5 % (42.0-52.0); HEMOGLOBIN 13.7 g/dl (13.5-17.5); LYMPH # 2.5 10^3/uL (1.5-5.0); LYMPH % 22.2 % (24.0-44.0); MEAN CORPUSCULAR HEMOGLOBIN 31.4 pg (27.0-33.0); MEAN CORPUSCULAR HGB CONC 33.8 g/dl (32.0-36.5); MEAN CORPUSCULAR VOLUME 92.7 fl (80.0-96.0); MONO # 1.5 10^3/uL (0.0-0.8); MONO % 12.7 % (2.0-8.0); NEUTROPHILS # 7.3 10^3/uL (1.5-8.5); NEUTROPHILS % 63.6 % (36.0-66.0); PLATELET COUNT, AUTOMATED 193 10^3/uL (150-450); RED BLOOD COUNT 4.37 10^6/uL (4.30-6.10); WHITE BLOOD COUNT 11.4 10^3/uL (4.0-10.0)
[2024-05-12 23:20] LABS: ALBUMIN 3.5 G/DL (3.2-5.2); ALKALINE PHOSPHATASE 63 U/L (46-116); ALT/SGPT 18 U/L (7.0-40); AST/SGOT 19 U/L (<34); BILIRUBIN,TOTAL 0.5 MG/DL (0.3-1.2); BLOOD UREA NITROGEN 13 MG/DL (9-23); CARBON DIOXIDE LEVEL 24 MMOL/L (20-31); CHLORIDE LEVEL 109 MMOL/L (98-107); CREATININE FOR GFR 0.78 MG/DL (0.70-1.30); GLOMERULAR FILTRATION RATE > 60.0 (>60); GLUCOSE, FASTING 88 MG/DL (60-100); SODIUM LEVEL 141 MMOL/L (136-145); TOTAL PROTEIN 7.5 G/DL (5.7-8.2)
[2024-05-13] MEDS: MORPHINE 2 MG/ML 1ML VIAL IV ONE (03:30)
[2024-05-13] MEDS: ONDANSETRON 4MG 2ML VIAL IV ONE (04:05)
[2024-05-13] MEDS: PIPERACILLIN/TAZOBACTAM SOD 4.5 GM in D5W MINI-BAG PLUS 50 ML IV ONE (05:30)
[2024-05-13] MEDS: KETOROLAC 30 MG/ML 1ML VIAL IV ONE (05:43)
[2024-05-13] MEDS: ACETAMINOPHEN *IV* 1,000 MG in IV 1 EA IV ONE (05:44)
[2024-05-13] MEDS ORDERED: VANCOMYCIN HCL 2,000 MG in D5W 500 ML IV ONE (07:45)
[2024-05-13 08:10] LABS: ERYTHROCYTE SEDIMENTATION RATE 44 mm/hr (0-15)
[2024-05-13] MEDS: VANCOMYCIN HCL 1,000 MG, VIAL MATE ADAPTER 1 EACH in D5W 250 ML IV ONE ×2 (08:16→10:00)
[2024-05-13] MEDS: BOOSTRIX VACCINE (TETANUS/DIPHTH/ACEL. PERTUSSIS) 0.5ML SYR IM.IMMUN ONE (08:17)
[2024-05-13] MEDS ORDERED: VANCOMYCIN HCL 1,000 MG, VIAL MATE ADAPTER 1 EACH in D5W 250 ML IV SCH (09:20)
[2024-05-13] MEDS ORDERED: ACETAMINOPHEN TAB 650MG DOSE (2X325MG) PO PRN (09:20)
[2024-05-13] MEDS ORDERED: BACL5TAB2 PO (09:35)
[2024-05-13] MEDS ORDERED: LORazepam 2 MG TAB PO PRN (09:35)
[2024-05-13] MEDS ORDERED: HOME MED LIST COMPLETE! XX SCH (09:40)
[2024-05-13 10:29] LABS: INR 1.01
[2024-05-13] MEDS ORDERED: MORPHINE 2 MG/ML 1ML VIAL IV PRN (11:35)
[2024-05-13] MEDS ORDERED: SUCRALFATE SUSP 1GM/10ML UD PO PRN (12:00)
[2024-05-13] MEDS: ONDANSETRON 4MG 2ML VIAL IV PRN (12:47)
[2024-05-13] MEDS: KETOROLAC 30 MG/ML 1ML VIAL IV PRN (12:47)
[2024-05-13] MEDS: THIAMINE 100 MG TAB PO SCH (13:12)
[2024-05-13] MEDS: MULTIVITAMINS/MINERALS THERAP 1 TAB PO SCH (13:12)
[2024-05-13] MEDS: FOLIC ACID 1MG TAB PO SCH (13:12)
[2024-05-13] MEDS: PIPERACILLIN/TAZOBACTAM SOD 3.375 GM in D5W MINI-BAG PLUS 50 ML IV SCH (13:13)
[2024-05-13] MEDS: NS 1,000 ML IV SCH (13:19)
[2024-05-13 15:30] VITALS: BP 151/79; TEMP 98.1; O2SAT 99
[2024-05-13 15:43] VITALS: BP 151/79
[2024-05-13] MEDS: NICOTINE 21MG/24HR 1 EA TRANSDERMAL TD SCH (16:52)
[2024-05-13] MEDS: VANCOMYCIN HCL 1,000 MG, VIAL MATE ADAPTER 1 EACH in D5W 250 ML IV SCH (16:52)
[2024-05-13] MEDS: MECLIZINE 25 MG TABLET PO PRN (17:01)
[2024-05-13] MEDS: ENOXAPARIN 100MG/1ML SYRINGE (J1650 PER 10MG) SC SCH (20:13)
[2024-05-13] MEDS: METOCLOPRAMIDE INJ 10MG/2ML VIAL IV ONE (20:41)
[2024-05-13 20:54] VITALS: BP 147/108; TEMP 98.8; O2SAT 97
[2024-05-13 20:56] VITALS: BP 160/110
[2024-05-13 21:03] VITALS: TEMP 99.4
[2024-05-13 21:10] VITALS: BP 160/110
[2024-05-14] VITALS (15 sets, daily range): BP systolic 138–159; BP diastolic 81–105; TEMP 97.9–98.8; O2SAT 95–100
[2024-05-14] MEDS: PERCOCET 5MG/325MG TAB PO PRN (00:03)
[2024-05-14 06:45] LABS: HEMATOCRIT 40.9 % (42.0-52.0); HEMOGLOBIN 13.4 g/dl (13.5-17.5); MEAN CORPUSCULAR HEMOGLOBIN 30.9 pg (27.0-33.0); MEAN CORPUSCULAR HGB CONC 32.8 g/dl (32.0-36.5); MEAN CORPUSCULAR VOLUME 94.2 fl (80.0-96.0); PLATELET COUNT, AUTOMATED 170 10^3/uL (150-450); RED BLOOD COUNT 4.34 10^6/uL (4.30-6.10); WHITE BLOOD COUNT 8.8 10^3/uL (4.0-10.0)
[2024-05-14] MEDS ORDERED: fentaNYL 100 MCG/2 ML INJECTION As Ordered ONE (07:23)
[2024-05-14] MEDS ORDERED: ONDANSETRON 4MG 2ML VIAL As Ordered ONE (07:23)
[2024-05-14] MEDS ORDERED: LIDOCAINE 2% 100MG/5ML SDV (FOR ANES.) As Ordered ONE (07:23)
[2024-05-14] MEDS ORDERED: MIDAZOLAM INJ 2MG/2ML VIAL As Ordered ONE (07:23)
[2024-05-14] MEDS ORDERED: propofoL 200 MG/20 ML VIAL As Ordered ONE (07:23)
[2024-05-14 07:24] LABS: ALKALINE PHOSPHATASE 62 U/L (46-116); ALT/SGPT 14 U/L (7.0-40); AST/SGOT 16 U/L (<34); BILIRUBIN,TOTAL 1.1 MG/DL (0.3-1.2); BLOOD UREA NITROGEN 12 MG/DL (9-23); CALCIUM LEVEL 8.2 MG/DL (8.5-10.1); CARBON DIOXIDE LEVEL 27 MMOL/L (20-31); CHLORIDE LEVEL 107 MMOL/L (98-107); CREATININE FOR GFR 0.93 MG/DL (0.70-1.30); GLOMERULAR FILTRATION RATE > 60.0 (>60); GLUCOSE, FASTING 98 MG/DL (60-100); POTASSIUM SERUM 3.5 MMOL/L (3.5-5.1); SODIUM LEVEL 141 MMOL/L (136-145); TOTAL PROTEIN 6.8 G/DL (5.7-8.2)
[2024-05-14] MEDS ORDERED: MEPERIDINE 25 MG/ML 1ML VIAL IV PRN (08:20)
[2024-05-14] MEDS ORDERED: HYDROMORPHONE HCL 0.5 MG/ 0.5 ML SYRINGE IV PRN (08:20)
[2024-05-14] MEDS ORDERED: oxyCODONE 5MG TAB PO PRN (08:20)
[2024-05-14] MEDS ORDERED: ONDANSETRON 4MG 2ML VIAL IV PRN ×2 (08:20→12:30)
[2024-05-14] MEDS ORDERED: fentaNYL 100 MCG/2 ML INJECTION IV PRN ×2 (08:20→12:30)
[2024-05-14] MEDS: OMEPRAZOLE 20MG CAP PO SCH (09:00)
[2024-05-14] MEDS: VANCOMYCIN HCL 1,000 MG, VIAL MATE ADAPTER 1 EACH in D5W 250 ML IV SCH (10:15)
[2024-05-14] MEDS ORDERED: HYDROmorphone HCL 2MG/ML 1ML VIAL As Ordered ONE (11:49)
[2024-05-14] MEDS ORDERED: KETOROLAC 60MG 2ML VIAL As Ordered ONE (11:50)
[2024-05-14] MEDS ORDERED: ACETAMINOPHEN 1000MG 100ML IV BAG As Ordered ONE (11:50)
[2024-05-14] MEDS: oxyCODONE 5MG TAB PO PRN (12:47)
[2024-05-14] MEDS: HYDROMORPHONE HCL 0.5 MG/ 0.5 ML SYRINGE IV PRN (12:50)
[2024-05-14] MEDS ORDERED: LR 1,000 ML IV SCH (14:00)
[2024-05-15 05:00] VITALS: BP 145/88; TEMP 98.6; O2SAT 98
[2024-05-15 05:01] VITALS: BP 145/88
[2024-05-15 05:34] LABS: HEMATOCRIT 38.1 % (42.0-52.0); HEMOGLOBIN 12.5 g/dl (13.5-17.5); MEAN CORPUSCULAR HEMOGLOBIN 31.2 pg (27.0-33.0); MEAN CORPUSCULAR HGB CONC 32.8 g/dl (32.0-36.5); PLATELET COUNT, AUTOMATED 172 10^3/uL (150-450); RED BLOOD COUNT 4.01 10^6/uL (4.30-6.10); WHITE BLOOD COUNT 11.3 10^3/uL (4.0-10.0)
[2024-05-15 06:00] LABS: ALBUMIN 2.6 G/DL (3.2-5.2); ALKALINE PHOSPHATASE 52 U/L (46-116); ALT/SGPT 13 U/L (7.0-40); AST/SGOT 13 U/L (<34); BILIRUBIN,TOTAL 0.6 MG/DL (0.3-1.2); BLOOD UREA NITROGEN 12 MG/DL (9-23); CALCIUM LEVEL 7.6 MG/DL (8.5-10.1); CARBON DIOXIDE LEVEL 27 MMOL/L (20-31); CHLORIDE LEVEL 110 MMOL/L (98-107); CREATININE FOR GFR 0.92 MG/DL (0.70-1.30); GLOMERULAR FILTRATION RATE > 60.0 (>60); GLUCOSE, FASTING 101 MG/DL (60-100); POTASSIUM SERUM 3.7 MMOL/L (3.5-5.1); SODIUM LEVEL 141 MMOL/L (136-145)
[2024-05-15] MEDS: MORPHINE 2 MG/ML 1ML VIAL IV PRN (08:25)
[2024-05-15 09:12] LABS: VANCOMYCIN LEVEL TROUGH 11.3 UG/ML (10.0-20.0)
[2024-05-15 09:54] LABS: C REACTIVE PROTEIN QUANTITATIV 3.3 MG/DL (<1.0)
[2024-05-15 13:15] VITALS: BP 146/95; TEMP 98.4; O2SAT 100
[2024-05-15] MEDS ORDERED: CEPH500C PO (13:45)
[2024-05-15] MEDS ORDERED: PERC5TAB12 PO (13:45)
[2024-05-15] MEDS ORDERED: PROB250C PO (14:05)
[2024-05-15] MEDS ORDERED: DOXY-440 PO (14:05)
[2024-05-15] MEDS ORDERED: AMOX875T2 PO (14:05)
== END 2024-05-15 14:00 | disposition home or self-care (01) | DRG 364 ==
LOC: M ED 20:17 → M ED INP 05-13 09:20 → M MS5PR 05-13 15:25
PROVIDERS: ADMIT Internal Medicine; ATTEND Internal Medicine
PROC: 0KBK0ZZ Excision of Right Abdomen Muscle, Open Approach (ICD-10-PCS; principal; 2024-05-14 08:00)
DX: L03.113 Cellulitis of right upper limb (principal); M00.841 Arthritis due to other bacteria, right hand; I10 Essential (primary) hypertension; F17.200 Nicotine dependence, unspecified, uncomplicated; F10.10 Alcohol abuse, uncomplicated; Z79.01 Long term (current) use of anticoagulants; Z86.718 Personal history of other venous thrombosis and embolism; Z79.899 Other long term (current) drug therapy; S61.411D Laceration without foreign body of right hand, subsequent encounter; R42 Dizziness and giddiness

== ENCOUNTER 2024-07-11 12:49 | Outpatient (RCR) | payer OTHER ==
[~2024-07-11 12:49] MED LIST changes: +AMOX875T2 PO; +BACL5TAB2 PO; +CEPH500C PO; +DOXY-440 PO; +PERC5TAB12 PO; +PROB250C PO
== END 2024-07-17 ==
LOC: M PT 12:49
PROVIDERS: ATTEND Physician Assistant
DX: M54.12 Radiculopathy, cervical region (principal); M54.50 Low back pain, unspecified

== ENCOUNTER 2024-08-15 13:45 | Outpatient (RCR) | payer OTHER | END 2024-08-17 | LOC: M PT 13:45 | PROVIDERS: ATTEND Physician Assistant | DX: M54.12 Radiculopathy, cervical region (principal); M54.50 Low back pain, unspecified ==

== ENCOUNTER 2024-08-25 14:31 | Outpatient (RCR) | payer OTHER | END 2024-09-16 | LOC: M PT 14:31 | PROVIDERS: ATTEND Physician Assistant | DX: M54.2 Cervicalgia (principal); M54.50 Low back pain, unspecified; M54.6 Pain in thoracic spine ==

== ENCOUNTER → 2024-09-13 | Outpatient (CLI) | payer OTHER | LOC: M RAD 15:55 | PROVIDERS: ATTEND Anesthesiology Pain Medicine | DX: M54.16 Radiculopathy, lumbar region (principal); M51.34 Other intervertebral disc degeneration, thoracic region; M51.26 Other intervertebral disc displacement, lumbar region; M46.96 Unspecified inflammatory spondylopathy, lumbar region ==

== ENCOUNTER 2024-09-29 14:30 | Outpatient (RCR) | payer OTHER | END 2024-10-17 | LOC: M PT 14:30 | PROVIDERS: ATTEND Physician Assistant | DX: M54.12 Radiculopathy, cervical region (principal); M54.50 Low back pain, unspecified ==

== ENCOUNTER → 2025-05-29 | Outpatient (REF) | payer OTHER ==
[2025-05-29 18:42] LABS: ALT/SGPT 15 U/L (7.0-40); AST/SGOT 18 U/L (<34); CALCIUM LEVEL 9.6 MG/DL (8.5-10.1); CARBON DIOXIDE LEVEL 23 MMOL/L (20-31); CHLORIDE LEVEL 107 MMOL/L (98-107); CREATININE FOR GFR 0.79 MG/DL (0.70-1.30); GLOMERULAR FILTRATION RATE > 90.0 (>60); POTASSIUM SERUM 4.0 MMOL/L (3.5-5.1); SODIUM LEVEL 140 MMOL/L (136-145)
== END ==
LOC: M LAB REF 17:54
PROVIDERS: ATTEND Nurse Practitioner Family
DX: F52.21 Male erectile disorder (principal)

== ENCOUNTER → 2025-09-05 | Outpatient (CLI) | payer OTHER ==
[~2025-09-05] MED LIST changes: -IBUP-1022 PO; +IBUP600T42 PO
== END ==
LOC: M WUC 11:08
PROVIDERS: ATTEND Nurse Practitioner Family
DX: M54.6 Pain in thoracic spine (principal); M54.2 Cervicalgia; M25.532 Pain in left wrist

== ENCOUNTER → 2025-09-19 | Outpatient (CLI) | payer OTHER | LOC: M PLAIMG 12:03 | PROVIDERS: ATTEND Physician Assistant Surgical | DX: S60.212A Contusion of left wrist, initial encounter (principal); M79.89 Other specified soft tissue disorders; M65.832 Other synovitis and tenosynovitis, left forearm; G56.02 Carpal tunnel syndrome, left upper limb; X58.XXXA Exposure to other specified factors, initial encounter; Y92.9 Unspecified place or not applicable; Y93.9 Activity, unspecified; Y99.9 Unspecified external cause status ==